=== PATIENT | male | born 1935 | race Caucasian/White ===

== ENCOUNTER 2017-04-01 06:53 | Emergency (ER) | payer MEDICARE ==
[2017-04-01] MEDS ORDERED: IPRATROPIUM/ALBUTEROL (0.5MG/3MG) NEB INH ONE ×2 (07:06→07:12)
[2017-04-01] MEDS ORDERED: ASPIRIN 81 MG CHEWABLE TABLET PO ONE (07:06)
--- NOTE | 2017-04-01 07:13 | Emergency Department Record ---
History of Present Illness - General Chief Complaint: Shortness of breath Stated Complaint: CATRACHO Time Seen by Provider: 04/01/17 07:05 Source: Patient, Family Mode of Arrival: Ambulatory Limitations: No limitations - History of Present Illness Initial Comments: 82 yo male presents with shortness of breath with chest pain that comes and goes. The symptoms have been intermittent over the last week and a half. He has a history of CAD and COPD. He reports he had a stent placed about three to four years ago. No fever. No significant cough and no fever. No new leg swelling. He is a former smoker that quit many years ago. His discomfort and shortness of breath are worsened by activity. His PCP is Dr Argueta. His last saw his obstetrics/gynecology nurse about one year ago. He is not on home oxygen. Initial oxygen saturations on presentation was 81% just after ambulation. He reports relief with the oxygen in the ED and has no pain at this time. DC Summary from 02/2014 Cardiac Cath with right coronary stent, CAP, Bullous Emphysema, CAD,Anemia, HTN, MAT No stress test since the stent placement. He saw Dr Krishna about one year ago. Complaint: Chest pain, Cough, Shortness of breath Onset/Timin -: Days(s) (7) Severity: Moderate Consistency: Constant, Getting worse Improves With: Nothing Worsens With: Nothing Known History Of: COPD, Other (CAD) Associated Symptoms: Chest pain Treatments Prior to Arrival: None - Related Data Home Medications Medication Instructions Recorded Confirmed Last Taken Albuterol Sulfate [Proair Hfa] 1 - 2 puff IH .EVERY 4-6 HOURS PRN 04/01/1704/01 Unknown Meloxicam [Mobic] 15 mg PO DAILY 04/01/17 04/01/17 Unknown Umeclidinium Brm/Vilanterol Tr 1 each IH DAILY 04/01/17 04/01/17 Unknown [Anoro Ellipta 62.5-25 Mcg INH] Allergies Allergy/AdvReac Type Severity Reaction Status Date / Time No Known Drug Allergies Allergy Verified 02/01/14 23:52 Travel Screening - Travel/Exposure Within Last 30 Days Have you traveled within the last 30 days?: No Review of Systems Constitutional: Denies: Chills, Fever, Malaise, Weakness Eyes: Denies: Eye discharge ENT: Denies: Congestion, Dental pain, Throat pain Respiratory: Reports: Cough, Dyspnea, Wheezes. Denies: Hemoptysis, Stridor Cardiovascular: Reports: Chest pain. Denies: Palpitations, Syncope Endocrine: Reports: Fatigue Gastrointestinal: Denies: Abdominal pain, Diarrhea, Nausea, Vomiting Genitourinary: Denies: Dysuria, Frequency, Hematuria Musculoskeletal: Denies: Arthralgia, Back pain, Joint swelling, Myalgia, Neck pain Skin: Denies: Bruising, Change in color Neurological: Denies: Confusion, Headache, Numbness, Weakness Psychiatric: Denies: Anxiety Hematological/Lymphatic: Denies: Blood Clots, Easy bleeding, Easy bruising, Swollen glands Past Medical History - SOCIAL HISTORY Smoking Status: Former smoker Alcohol Use: None Drug Use: None - RESPIRATORY Hx Respiratory Disorders: No Comment:: "early emphysema." - CARDIOVASCULAR Hx Cardio Disorders: Yes Hx Heart Attack: Yes (2013 stent) Hx Hypertension: Yes - NEURO Hx Neuro Disorders: No - GI Hx GI Disorders: Yes - Hx Genitourinary Disorders: No - ENDOCRINE Hx Endocrine Disorders: No - MUSCULOSKELETAL Hx Musculoskeletal Disorders: No - PSYCH Hx Psych Problems: No - HEMATOLOGY/ONCOLOGY Hx Hematology/Oncology Disorders: No Family Medical History Any Significant Family History?: No Physical Exam - General General Appearance: Alert, Oriented x3, Cooperative, No acute distress Limitations: No limitations - Head Head exam: Normal inspection - Eye Eye exam: Normal appearance, PERRL. negative: Conjunctival injection, Periorbital swelling - ENT ENT exam: Normal exam, Mucous membranes moist Ear exam: Normal external inspection Nasal Exam: Normal inspection Mouth exam: Normal external inspection Teeth exam: Normal inspection Throat exam: Normal inspection - Neck Neck exam: Normal inspection, Full ROM. negative: Tenderness - Respiratory Respiratory exam: Decreased breath sounds. negative: Accessory muscle use, Prolonged expiratory, Respiratory distress, Rhonchi, Stridor, Wheezes - Cardiovascular Cardiovascular Exam: Regular rate, Normal rhythm, Normal heart sounds, Other ( occasional extrasystole) Peripheral Pulses: 2+: Radial (R), Radial (L) - GI/Abdominal GI/Abdominal exam: Soft. negative: Tenderness - Rectal Rectal exam: Deferred - exam: Deferred - Extremities Extremities exam: Normal inspection, Full ROM, Normal capillary refill. negative: Pedal edema, Tenderness - Back Back exam: Reports: Normal inspection, Full ROM. Denies: Muscle spasm, Rash noted, Tenderness - Neurological Neurological exam: Alert, Normal gait, Oriented X3 - Psychiatric Psychiatric exam: Normal affect, Normal mood - Skin Skin exam: Dry, Intact, Normal color, Warm Course - Reevaluation(s) Reevaluation #1: EKG sinus rhythm with occasional extra beats, Qtc 473, axis normal, ST no acute changes. No significant changes 02/01/14 04/01/17 07:11 04/01/17 07:59 The patient states the discomfort in the lower chest is returning but very mild. He will be placed on oxygen and one nitro will be given. 04/01/17 08:01 BNP is 1171 The CXR was reviewed. Prlim MILD PVC 04/01/17 08:19 One nitro glycerin resolved pain completely 04/01/17 09:[address] due to scanner is off line. 04/01/17 09:14 I have explained the situation to the patient. I have recommended EMS transfer to [facility] ED given the time for the CT scanner repair is unknown and was recently down for 2.5 days. He agrees with transfer to [facility] but he will not go by ambulance. I had several very long discussions that [place] and other diagnoses such as PE are not ruled out. I explained he should be on a monitor and oxygen. I explained at length he is taking serious risk by going private car. He understands this and accepts this risk. I explained the AMA signout process and that he is accepting risks of self transport. He agrees and states there are no obvious circumstances that would alter his decision. He is of clear thought and decision making. His daughter is very reliable and will take him. I SW Dr Aysha Donohue of the [facility] ED and explained the AMA signed out and the transfer by car for further work up of his chest pain and shortness of breath. 04/01/17 09:23 04/01/17 09:34 At time of Dc he is pain free, no dyspnea, saturation 96% Medical Decision Making - Lab Data Result diagrams: 04/01/17 07:00 04/01/17 07:00 Disposition Disposition: Transfer Clinical Impression: Hypoxia Chest pain Qualifiers: Chest pain type: unspecified Qualified Code(s): R07.9 - Chest pain, unspecified Disposition: Against Medical Advice Transfer To: [facility] Reason For Transfer: Chest Pain, No Cardiology Accepting Physician: Charanjit Time Discussed w/Accepting Physician: 09: Condition: (3) Guarded Instructions: Against Medical Advice (ED) Additional Instructions: Go directly to the [facility] for work up and admission for chest pain and shortness of breath Forms: Patient Portal Access Time of Disposition: : Quality - Quality Measures Quality Measures: N/A - Blood Pressure Screening Does Patient Have Any of the Following: No Blood Pressure Classification: Pre-Hypertensive BP Reading Systolic Measurement: 136 Diastolic Measurement: 73 Screening for High Blood Pressure: < Pre-Hypertensive BP, F/U Documented > [ [id number]] Pre-Hypertensive Follow-up Interventions: Referral to alternative/primary care provider.
[2017-04-01 07:23] LABS: HEMATOCRIT 38.5 % (42.0-52.0); HEMOGLOBIN 13.3 gm/dl (14.0-18.0); MEAN CELL VOLUME 101.3 fl (81-97); MEAN CORPUSCULAR HGB CONC 34.5 g/dl (32-36); MEAN PLATELET VOLUME 10.1 fl (7.4-10.4); PLATELET COUNT 186 K/uL (130-400); RED CELL DISTRIBUTION WIDTH 12.8 % (11.5-14.5); WHITE BLOOD COUNT W/O DIFF 8.6 K/uL (4.2-12.2)
[2017-04-01 07:32] LABS: INR 1.1; PARTIAL THROMBOPLASTIN TIME 30.2 SECONDS (24.5-39.1); PROTHROMBIN TIME (PATIENT) 11.5 SECONDS (9.5-12.1)
[2017-04-01 07:33] LABS: BLOOD UREA NITROGEN 10 mg/dL (8-23); EST GLOMERULAR FILTRATION RATE > 60 mL/min
[2017-04-01 07:34] LABS: TOTAL PROTEIN 7.1 g/dL (6.6-8.7)
[2017-04-01 07:36] LABS: GLUCOSE,RANDOM 116 mg/dL (74-109)
[2017-04-01 07:39] LABS: ALBUMIN 4.7 g/dL (4.0-5.0); ALKALINE PHOSPHATASE 77 U/L (40-129); ALT/SGPT 18 U/L (<41); AST/SGOT 19 U/L (10.0-50.0)
[2017-04-01] MEDS ORDERED: NITROGLYCERIN 0.4MG SL TABLET #25 BTL SL ONE (07:59)
[2017-04-01] MEDS ORDERED: METHYLPREDNISOLONE PF 125MG/VIAL IVP ONE (08:56)
--- NOTE | 2017-04-02 04:10 | RADIOLOGY REPORT ---
DATE: 04/01/2017. EXAM: TWO VIEWS OF THE CHEST. HISTORY: The patient has chest pain. TECHNIQUE: Two views of the chest were provided along with a comparison study dated 02/20/2014. FINDINGS: The cardiomediastinal silhouette is within normal limits for size and contour. The ciera appear unremarkable. There is no radiographic evidence of a focal infiltrate or pleural effusion. Significant chronic obstructive pulmonary disease changes are identified bilaterally. Pulmonary fibrosis is suspected bilaterally. IMPRESSION: CHRONIC OBSTRUCTIVE PULMONARY DISEASE CHANGES ARE IDENTIFIED WITHOUT RADIOGRAPHIC EVIDENCE OF A NEW, ACUTE INTRATHORACIC PROCESS. JOB NUMBER: [id number] [facility]
== END 2017-04-01 09:32 | disposition left against medical advice (07) ==
LOC: ER 06:53
DX: R09.02 Hypoxemia (principal); I10 Essential (primary) hypertension; J44.9 Chronic obstructive pulmonary disease, unspecified; I50.9 Heart failure, unspecified; I25.2 Old myocardial infarction; Z87.891 Personal history of nicotine dependence
CPT/HCPCS: 71046; 80053; 83880; 84484; 85027; 85379; 85610; 85730; 93005; 93010; 94640; 96374; 99284; J2930

== ENCOUNTER 2019-02-11 21:14 | Inpatient (IN) | payer MEDICARE, MEDICAID ==
[2019-02-11] MEDS ORDERED: IPRATROPIUM/ALBUTEROL (0.5MG/3MG) NEB INH ONE (21:17)
--- NOTE | 2019-02-11 21:24 | Emergency Department Record ---
History of Present Illness - General Chief Complaint: Shortness of breath Stated Complaint: CATRACHO Time Seen by Provider: 02/11/19 21:16 Source: Patient, EMS Mode of Arrival: EMS Limitations: No limitations - History of Present Illness Initial Comments: 84 yo male presents to ED for evaluation of difficulty in breathing tonight while changing is ostomy, reports history of COPD and he became short of breath with minimal exertion this evening. Patient denies fevers, chills, productive cough symptoms. Patient does report mild bilateral lower extremity edema symptoms. Patient denies chest discomfort symptoms. MD Complaint: Shortness of breath Onset/Timin -: Minutes(s) Severity: Moderate Consistency: Constant Improves With: Oxygen Worsens With: Exertion Known History Of: COPD Associated Symptoms: Denies other symptoms Treatments Prior to Arrival: Bronchodilator, Oxygen - Related Data Home Oxygen Therapy: Yes Home Oxygen Amount: 2 Liters Allergies Allergy/AdvReac Type Severity Reaction Status Date / Time No Known Drug Allergies Allergy Unverified 02/16/18 19:34 Review of Systems Constitutional: Denies: Chills, Fever, Malaise, Night sweats Eyes: Denies: Eye discharge, Eye pain ENT: Denies: Congestion, Ear pain, Epistaxis Respiratory: Reports: Dyspnea, Wheezes. Denies: Cough Cardiovascular: Reports: Dyspnea on exertion. Denies: Chest pain, Edema Endocrine: Denies: Fatigue, Heat or cold intolerance Gastrointestinal: Denies: Abdominal pain, Nausea, Vomiting Genitourinary: Denies: Incontinence, Retention Musculoskeletal: Reports: Arthralgia. Denies: Back pain Skin: Denies: Bruising, Change in color Neurological: Denies: Confusion, Headache, Seizure Psychiatric: Denies: Anxiety Hematological/Lymphatic: Denies: Anemia, Blood Clots Past Medical History - SOCIAL HISTORY Smoking Status: Former smoker Drug Use: None - RESPIRATORY Hx Respiratory Disorders: No Comment:: "early emphysema." - CARDIOVASCULAR Hx Cardio Disorders: Yes Hx Heart Attack: Yes (2014 stent) Hx Hypertension: Yes - NEURO Hx Neuro Disorders: No - GI Hx GI Disorders: Yes - Hx Genitourinary Disorders: No - ENDOCRINE Hx Endocrine Disorders: No - MUSCULOSKELETAL Hx Musculoskeletal Disorders: No - PSYCH Hx Psych Problems: No - HEMATOLOGY/ONCOLOGY Hx Hematology/Oncology Disorders: No Physical Exam - General General Appearance: Alert, Oriented x3, Cooperative, Mild distress Limitations: No limitations - Head Head exam: Atraumatic, Normocephalic, Normal inspection Head exam detail: negative: Abrasion, Contusion, Lobato's sign, General tenderness, Hematoma, Laceration - Eye Eye exam: Normal appearance. negative: Conjunctival injection, Periorbital swe lling, Periorbital tenderness, Scleral icterus - ENT Ear exam: negative: Auricular hematoma, Auricular trauma Nasal Exam: negative: Active bleeding, Discharge, Dried blood, Foreign body Mouth exam: negative: Drooling, Laceration, Muffled voice, Tongue elevation - Neck Neck exam: Normal inspection. negative: Meningismus, Tenderness - Respiratory Respiratory exam: Decreased breath sounds, Respiratory distress. negative: Rales, Rhonchi, Stridor, Wheezes - Cardiovascular Cardiovascular Exam: Regular rate, Normal rhythm, Normal heart sounds - GI/Abdominal GI/Abdominal exam: Soft. negative: Rebound, Rigid, Tenderness - Rectal Rectal exam: Deferred - exam: Deferred - Extremities Extremities exam: Pedal edema (Trace). negative: Tenderness - Back Back exam: Denies: CVA tenderness (R), CVA tenderness (L) - Neurological Neurological exam: Alert, Normal gait, Oriented X3 - Psychiatric Psychiatric exam: Normal affect, Normal mood - Skin Skin exam: Normal color. negative: Abrasion Type of lesion: negative: abrasion Course - Reevaluation(s) Reevaluation #1: 02/11/19 21:38 EKG: Sinus tachycardia 107 with PVCs LAD, normal intervals No acute ST-T wave changes are present on examination. Reevaluation #2: 02/11/19 22:03 CXR: Emphysema Increased diffuse reticuloneodular process-pulmonary edema vs. ? atypical pneumonia Laboratory studies were reviewed and appear grossly unremarkable for an acute process except for the following: Troponin 0.021 BNP 2233 Patient and family were updated on all results, will admit for 2-D Echo and cardiology consultation. No clinical evidence for pneumonia upon review of the patient's history and examination. Patient is in agreement with the plan of care as discussed. Reevaluation #3: 02/12/19 06:50 Case was discussed with Jolynn Milian NP, will accept patient for admission. Medical Decision Making - Lab Data Result diagrams: 02/11/19 21:35 02/11/19 21:35 Disposition Disposition: Admit Clinical Impression: Hypoxia COPD (chronic obstructive pulmonary disease) Qualifiers: COPD type: unspecified COPD Qualified Code(s): J44.9 - Chronic obstructive pulmonary disease, unspecified Pulmonary edema Qualifiers: Chronicity: acute Qualified Code(s): J81.0 - Acute pulmonary edema Disposition: Still a Patient at [facility] Decision to Admit: Admit from ER Decision to Admit Date: 02/11/19 Decision to Admit Time: 22:11 Condition: (2) Stable Time of Disposition: 22:11 Quality - Quality Measures Quality Measures: N/A - Blood Pressure Screening Does Patient Have Any of the Following: Active Dx of HTN Blood Pressure Classification: Hypertensive Reading Systolic Measurement: 139 Diastolic Measurement: 117 Screening for High Blood Pressure: Patient Exclusion, Hx of HTN [G9744]
[2019-02-11 21:50] LABS: BASO % 0.3 % (0-6); EOS % 0.2 % (0-6); HEMATOCRIT 43.2 % (42.0-52.0); HEMOGLOBIN 14.4 gm/dl (14.0-18.0); LYMPH % 8.9 % (16-45); MEAN CELL VOLUME 99.5 fl (81-97); MEAN CORPUSCULAR HGB CONC 33.3 g/dl (32-36); MEAN PLATELET VOLUME 10.3 fl (7.4-10.4); MONO % 7.6 % (0-9); PLATELET COUNT 195 K/uL (130-400); RED BLOOD COUNT 4.34 M/uL (4.40-5.70); RED CELL DISTRIBUTION WIDTH 14.3 % (11.5-14.5)
[2019-02-11] MEDS ORDERED: METHYLPREDNISOLONE PF 125MG/VIAL IVP ONE (21:51)
[2019-02-11 21:52] LABS: MEAN CORPUSCULAR HEMOGLOBIN 33.1 pg (27-33)
--- NOTE | 2019-02-11 21:58 | RADIOLOGY REPORT ---
EXAMINATION: Two View Chest Radiographs EXAM DATE: 02/11/2019 9:54 PM TECHNIQUE: Frontal and lateral views INDICATION: CATRACHO COMPARISON: None ENCOUNTER: Not applicable FINDINGS: Lungs are hyperinflated. Upper lung lucency as well as left basilar lucency consistent with emphysema . There is diffuse reticulonodular pattern more evident than the prior studies. Cardiac silhouette is not enlarged. Diaphragm is flattened. Osteopenia. IMPRESSION: Emphysema. There is diffuse reticulonodular opacity more prominent than prior studies which may refle ct mild interstitial pulmonary edema or atypical pneumonia. Dictated by: Davey Estrada MD on 02/11/2019 9:54 PM. .
[2019-02-11 22:02] LABS: BLOOD UREA NITROGEN 24 mg/dL (8-23)
[2019-02-11 22:03] LABS: CREATININE 1.2 mg/dL (0.7-1.2); EST GLOMERULAR FILTRATION RATE > 60 mL/min; TOTAL PROTEIN 7.1 g/dL (6.6-8.7)
[2019-02-11 22:05] LABS: GLUCOSE,RANDOM 125 mg/dL (74-109)
[2019-02-11 22:08] LABS: ALB/GLOB RATIO 1.4 (1.1-1.8); ALBUMIN 4.1 g/dL (4.0-5.0); ALKALINE PHOSPHATASE 131 U/L (40-129); ALT/SGPT 34 U/L (<41); AST/SGOT 20 U/L (10.0-50.0)
[2019-02-11] MEDS ORDERED: FAMOTIDINE 20MG TABLET PO PRN (23:13)
[2019-02-12] MEDS: SODIUM CHLORIDE NASAL SPRAY PRN (00:08)
[2019-02-12] MEDS ORDERED: MECLIZINE 25 MG TABLET PO PRN (00:15)
[2019-02-12] MEDS: ALBUTEROL HFA 8 GM INHALER INH SCH ×3 (02:14→10:13)
[2019-02-12] MEDS: METHYLPREDNISOLONE PF 125MG/VIAL IVP SCH ×3 (08:35→21:25)
[2019-02-12] MEDS: HYDROCHLOROTHIAZIDE 12.5 MG CAPSULE PO SCH (09:38)
[2019-02-12] MEDS: LISINOPRIL 20 MG TABLET PO SCH (09:38)
[2019-02-12] MEDS: PRAVASTATIN 40MG PO SCH (09:39)
[2019-02-12] MEDS: ROFLUMILAST 500 MCG PO SCH (09:40)
[2019-02-12] MEDS: MELOXICAM 7.5 MG TABLET PO SCH (09:40)
[2019-02-12] MEDS ORDERED: FUROSEMIDE IV 20MG/2ML VIAL IVP SCH (10:00)
[2019-02-12] MEDS ORDERED: POTASSIUM CHLORIDE 20 MEQ TABLET PO ONE (10:00)
[2019-02-12] MEDS ORDERED: METOPROLOL TART 25 MG TABLET PO SCH (10:00)
[2019-02-12] MEDS: TRELEGY INH SCH (10:27)
--- NOTE | 2019-02-12 10:53 | History & Physical ---
History of Present Illness - Date of Service Date of Service for History & Physical: 02/12/19 - History of Present Illness Admitting Diagnosis: Hypoxia. Probable CHF exacerbation vs. COPD exacerbation History of Present Illness: 84 year old male patient presented to ED for evaluation of SOB. Patient reported getting up to change his ostomy bag during the night and reports being unable to catch his breath after getting up. States he has to increase his oxygen to 4L at that time, up from his baseline 2L oxygen. 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 Denied fever, chills, cough, nausea, vomiting, or diarrhea. Patient has noted bilateral leg swelling for 3 weeks as well. Reports a cardiac history significant for a cardiac stent 4-5 years ago, but has not been following with any clinical provider trainer since then. Patient also has a PMH of COPD with home oxygen use, HTN, and an ostomy due to rectal cancer 13 years ago. PCP: Dr. Argueta ED Course: EKG: sinus tachycardia rate 107 with PVCx CXR: emphysema; reticulonodular opacity which may be interstitial pulmonary edema vs atypical pneumonia Trop 0.021 BNP 2233 CBC unremarkable, K 3.2, Cr 1.2, GFR 60 Solumedrol 125mg IVP 02/12/19: Patient A&O x 4, resting comfortably in bed. Notes some improvement in SOB since admission. Reports intermittent SOB x 3-4 days with bilateral leg swelling x 3 weeks. Also notes increasing weakness and difficulty at home, as he lives alone. Reports using a wheeled walker within the home. Has also noted weight loss due to inability to make meals for himself. 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 Travel Screening - Travel/Exposure Within Last 30 Days Have you traveled within the last 30 days?: No - Travel/Exposure Within Last Year Have you traveled outside the [place] 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 Denies: Cough Cardiovascular: Reports: Dyspnea on exertion. Denies: Chest pain, Edema Endocrine: Denies: Fatigue, Heat or cold intolerance Gastrointestinal: Denies: Abdominal pain, Nausea, Vomiting Genitourinary: Denies: Incontinence, Retention Musculoskeletal: Reports: Arthralgia. Denies: Back pain Skin: Denies: Bruising, Change in color Neurological: Denies: Confusion, Headache, Seizure Psychiatric: Denies: Anxiety Hematological/Lymphatic: Denies: Anemia, Blood Clots Past Medical History - SOCIAL HISTORY Smoking Status: Former smoker Drug Use: None - RESPIRATORY Hx Respiratory Disorders: No Comment:: "early emphysema." - CARDIOVASCULAR Hx Cardio Disorders: Yes Hx Heart Attack: Yes (2013 stent) Hx Hypertension: Yes - NEURO Hx Neuro Disorders: No - GI Hx GI Disorders: Yes - Hx Genitourinary Disorders: No - ENDOCRINE Hx Endocrine Disorders: No - MUSCULOSKELETAL Hx Musculoskeletal Disorders: No - PSYCH Hx Psych Problems: No - HEMATOLOGY/ONCOLOGY Hx Hematology/Oncology Disorders: No Family Medical History Any Significant Family History?: No H&P Meds/Allergies - Allergies Allergies: Allergies Allergy/AdvReac Type Severity Reaction Status Date / Time No Known Drug Allergies Allergy Unverified 02/16/18 19:34 - Home Medications Home Medications Medication Instructions Recorded Confirmed Last Taken Aspirin [Aspirin EC] 81 mg PO DAILY 02/12/19 02/12/19 Unknown Fluticasone/Umeclidin/Vilanter 1 puff INH DAILY 02/12/19 02/12/19 Unknown [Trelegy Ellipta 100-62.5-25] Lisinopril/Hydrochlorothiazide 1 each PO DAILY 02/12/19 02/12/19 Unknown [Lisinopril-Hctz 20-12.5 mg Tab] - Active Medications Active Medications: Current Medications Albuterol Sulfate (Ventolin Hfa) 1 - 2 puff INH RESP.Q4H [facility] Last Admin: 02/12/19 10:13 Dose: 2 puff Documented by: Aspirin (Ecotrin (Ec)) 81 mg PO DAILY [place] Famotidine (Pepcid) 20 mg PO DAILY PRN PRN Reason: INDIGESTION Fluticasone Propionate (Flonase) 1 spray NA BID [facility] Furosemide (Lasix Iv) 20 mg IVP DAILY [facility] Last Admin: 02/12/19 09:38 Dose: 20 mg Documented by: Hydrochlorothiazide (Hctz 12.5mg) 12.5 mg PO DAILY [facility] Last Admin: 02/12/19 09:38 Dose: 12.5 mg Documented by: Lisinopril (Zestril) 20 mg PO DAILY [facility] Last Admin: 02/12/19 09:38 Dose: 20 mg Documented by: Meclizine HCl (Antivert) 12.5 mg PO Q8H PRN PRN Reason: DIZZINESS Meloxicam (Mobic) 15 mg PO DAILY [facility] Last Admin: 02/12/19 09:40 Dose: 15 mg Documented by: Methylprednisolone Sodium Succinate (Solu-Medrol) 60 mg IVP Q8HR [facility] Last Admin: 02/12/19 08:35 Dose: 60 mg Documented by: Metoprolol Tartrate (Lopressor) 25 mg PO DAILY [facility] Last Admin: 02/12/19 09:39 Dose: 25 mg Documented by: Non-Formulary Medication (Roflumilast [Daliresp]) 500 mcg PO DAILY [facility] Last Admin: 02/12/19 09:40 Dose: 500 mcg Documented by: Pravastatin 40mg 1 each PO DAILY [facility] Last Admin: 02/12/19 09:39 Dose: 1 each Documented by: Bridget 1 each INH DAILY [facility] Last Admin: 02/12/19 10:27 Dose: 1 each Documented by: Sodium Chloride ([place] Nasal) 0.5 ml NA Q2H PRN PRN Reason: DRY NASAL PASSAGE Last Admin: 02/12/19 00:08 Dose: 0.5 ml Documented by: Physical Exam - Vital Signs Vital Signs: Vital Signs - Last 24 Hrs Temp Pulse Pulse Pulse Resp BP BP 02/12/19 10:14 72 18 02/12/19 09:00 97.7 F 109 H 89 22 117/60 02/12/19 06:10 90 20 02/12/19 05:16 109 H 22 02/12/19 05:13 97.6 F 82 20 104/65 02/12/19 02:14 124 H 22 02/12/19 01:13 97.6 F 96 H 22 96/69 02/11/19 23:31 02/11/19 23:13 97.6 F 112 H 30 H 165/98 02/11/19 22:27 96 H 30 H 139/97 02/11/19 21:18 123 H 24 01/05/20 21:17 99.1 F 100 H 28 H 139/117 Pulse Ox 02/12/19 10:14 91 L 02/12/19 09:00 91 L 02/12/19 06:10 93 L 02/12/19 05:16 02/12/19 05:13 93 L 02/12/19 02:14 93 L 02/12/19 01:13 94 L 02/11/19 23:31 88 L 02/11/19 23:13 91 L 02/11/19 22:27 90 L 02/11/19 21:18 02/11/19 21:17 100 - General General Appearance: Alert, Oriented x3, Cooperative, No acute distress Limitations: No limitations - Head Head exam: Atraumatic, Normocephalic, Normal inspection Head exam detail: negative: Abrasion, Contusion, Lobato's sign, General tenderness, Hematoma, Laceration - Eye Eye exam: Normal appearance. negative: Conjunctival injection, Periorbital swelling, Periorbital tenderness, Scleral icterus - ENT ENT exam: Mucous membranes moist Ear exam: negative: Auricular hematoma, Auricular trauma Nasal Exam: negative: Active bleeding, Discharge, Dried blood, Foreign body Mouth exam: negative: Drooling, Laceration, Muffled voice, Tongue elevation - Neck Neck exam: Normal inspection. negative: Meningismus, Tenderness - Respiratory Respiratory exam: Decreased breath sounds, Rhonchi. negative: Rales, Stridor, Wheezes - Cardiovascular Cardiovascular Exam: Regular rate, Normal rhythm, Normal heart sounds Peripheral Pulses: 2+: Radial (R), Radial (L), Dorsalis Pedis (R), Dorsalis Pedis (L) - GI/Abdominal GI/Abdominal exam: Soft, Other (LLQ ostomy). negative: Rebound, Rigid, Ten derness - Rectal Rectal exam: Deferred - exam: Deferred - Extremities Extremities exam: Pedal edema (2+ bilaterally). negative: Tenderness - Back Back exam: Denies: CVA tenderness (R), CVA tenderness (L) - Neurological Neurological exam: Alert, Oriented X3 - Psychiatric Psychiatric exam: Normal affect, Normal mood - Skin Skin exam: Normal color. negative: Abrasion Type of lesion: negative: abrasion Results - Labs Result Diagrams: 02/11/19 21:35 02/11/19 21:35 Labs Last 24 Hours: Laboratory Results - last 24 hr 02/11/19 02/11/19 02/12/19 21:35 21:35 06:20 WBC 10.0 RBC 4.34 L Hgb 14.4 Hct 43.2 MCV 99.5 H MCH 33.1 H MCHC 33.3 RDW 14.3 Plt Count 195 MPV 10.3 Gran % 83.0 H Lymphocytes % 8.9 L Monocytes % 7.6 Eosinophils % 0.2 Basophils % 0.3 Absolute Neutrophils 8.30 Sodium 144 Potassium 3.2 L Chloride 103 Carbon Dioxide 24.0 Anion Gap 17.0 H BUN 24 H Creatinine 1.2 Estimated GFR > 60 Random Glucose 125 H Calcium 9.2 Total Bilirubin 1.50 H AST 20 ALT 34 Alkaline Phosphatase 131 H Troponin T 0.021 H < 0.010 NT-Pro-B Natriuret Pep 2233.00 H Total Protein 7.1 Albumin 4.1 Globulin 3.0 Albumin/Globulin Ratio 1.4 - Imaging and Cardiology Chest x-ray Status: Report reviewed VTE H&P Assessment - Risk for VTE Risk for VTE: Yes Risk Level: Moderate Risk Assessment Date: 02/12/19 Risk Assessment Time: 11:01 VTE Orders Placed or Will Be Placed: Yes Plan - Detailed Diagnosis and Plan (1) CHF (congestive heart failure) Current Visit: Yes Status: Acute Base Code: I50.9 - HEART FAILURE, UNSPECIFIED Comment: 02/12/19 - Increased SOB x 3 days with bilateral leg swelling x 3 weeks - No history of CHF, no current clinical provider trainer - BNP 2233 - CXR: reticulonodular opacity indicative of possible pulmonary edema - Bilateral lower extremity edema 2+ - Starting gentle diuresis with lasix 20mg daily - Strict I&O, daily weight, fluid restriction - ECHO ordered - 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 - 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 (2) COPD (chronic obstructive pulmonary disease) Current Visit: Yes Status: Acute Qualifiers: COPD type: unspecified COPD Qualified Code(s): J44.9 - Chronic obstructive pulmonary disease, unspecified Base Code: J44.9 - CHRONIC OBSTRUCTIVE PULMONARY DISEASE, UNSPECIFIED Comment: 02/12/19 - Increased SOB, COPD at baseline with home Oxygen use at 2L - CXR: emphysema - Afebrile, no elevation in WBC indicating infectious cause - Continue Daliresp and Trelegy - Solumedrol 60mg IVP q8h - Duoneb q4h prn SOB (3) Weakness Current Visit: Yes Status: Acute Base Code: R53.1 - WEAKNESS Comment: 02/12/19 - Patient reports increased weakness at home with difficulty performing ADLs as a result - Noting home weight loss - PT/OT to evaluation - Case management to work with patient and family on intermediate accountant plan (4) Hypoxia Current Visit: Yes Status: Acute Base Code: R09.02 - HYPOXEMIA Comment: 02/12/19 - Hypoxic on admission, requiring oxygen to increase to 12L - Improvement since admission, titrating oxygen needs down to keep pulse ox >90% - Continue to monitor (5) DVT prophylaxis Current Visit: Yes Status: Acute Base Code: Z29.9 - ENCOUNTER FOR PROPHYLACTIC MEASURES, UNSPECIFIED Comment: 02/12/19 - Moderate risk due to age, hospitalization, and increased weakness - Lovenox 40mg SQ (6) DNR (do not resuscitate) Current Visit: Yes Status: Acute Base Code: Z66 - DO NOT RESUSCITATE Comment: 02/12/19 - DNR this admission
--- NOTE | 2019-02-12 11:46 | Rehab Evaluation ---
Patient Information - Patient Information Diagnosis: Hypoxia Ordered Treatment: PT Evaluate and Treat Status: Initial Evaluation History: Detail (The patient presented in ED on 02/11 with complaints of difficulty breathing when changing his ostomy.) Past Medical/Surgical Hx: PAST MEDICAL/SURGICAL HISTORY Past Surgical History colostomy cardiac stent PMH - Respiratory Hx Respiratory Disorders No Comment: "early emphysema." PMH - Cardiovascular Hx Cardiovascular Disorders Yes Hx Heart Attack Yes: 2014 stent Hx Hypertension Yes PMH - Neuro Hx Neurological Disorders No PMH - GI Hx Gastrointestinal Disorders Yes PMH - Hx Genitourinary Disorders No PMH - Endocrine Hx Endocrine Disorders No PMH - Musculoskeletal Hx Musculoskeletal Disorders No PMH - Psych Hx Psychiatric Problems No PMH - Hematology/Oncology Hx Hematology/Oncology No Disorders Premorbid Status: Detail (The patient was ambulatory with 4 wheeled walker and O2 short distances. The patient had assistance with housework (3 times a week) and with bathing and dressing. Patient's family brought patient meals and also assisted with cleaning and laundry.) Social History: Detail (The patient lives alone in an apartment on the main floor. The patient's bathroom is equipped with : a walk in shower with a seat which patient does not use and a regular height toilet. The patient has a 4 wheeled walker and home O2.) Precautions: [place], Fall - Time With Patient Total Time Spent With Patient (Min): 30 Treatment Procedures: Detail (Initial Evaluation, low complexity.) Subjective Information - Subjective Information Per Patient (The patient has complaints of bilateral knee pain R knee with movement. The patient did not rate his pain using 0-10 pain scale.) Objective Data - Mental Status Patient Orientation: Oriented x3 - Visual Perception Appears within normal limits for therapeutic activities - ROM Not within normal limits (The patient's knee AROM was WNL except for R knee ext ension -10 degrees..) - Strength/Tone Not within normal limits (The patient's LE strength was bilaterally hip flexors 4-/5, hip abductors and adductors 4+/5, knee flexors and extensors 4/5. Ankle musculature testing was deferred secondary to shortness of breath with LE strength testing and decreased SPO2 82%.) - Bed Mobility Independent (The patient was independent with supine to sit transfer. The patient sat on the edge of the bed x 10 minutes.Patient's SPO2 remained in the 80's on 3L of O2. Increased to 4 L. The patient was able to with proper pursed lip breathing techniques increase SPO2 to 88.) - Transfers Independent (The patient was independent with sit to and from stand transfer. The patient declined to ambulate due to fear he wouldn't be able to breath. The patient did take 2 steps to chair with use of front wheeled walker and transferred to chair with supervision for safety only. After transferring and resting in chair x 1 minute SPO2 level increased to 91 (on 4 L of O2).) - Balance Balance Sitting: Good Balance Standing: Fair (The patient required support of walker to stand.) - Gait Detail (The patient declined to ambulate but did take two steps to the chair with supervision for safety and use of front wheeled walker.) Therapy Assessment - Therapy Assessment Detail (The patient exhibits shortness of breath with all physical activity including bed mobility, transfers and manual muscle testing. The patient's SPO2 level dropped to the 80 at the lowest with activity. The patient would benefit from PT to increase ability to complete functional activities including ambulation with minimal shortness breath.The patient would also benefit from short term subacute Rehab once medically stable.) Problem List - Problem List Physical Therapy Problem List: Detail (1) Impaired ambulation due to increased shortness of breath with activity 2) Decreased ability to complete prolonged physical activity 3) Decreased LE strength) Goals - Goals Physical Therapy Goals: 1) The patient will ambulate 20 feet with 4 L of O2 with supervision for safety only. 2) Assess the patient's balance using objective balance test. 3) The patient will tolerate 20 minutes of physical activity with one to two rest periods, maintaining SPO2 at 88 or above using pursed lip breathing techniques. Plan - Plan Physical Therapy Plan: PT daily M- F for gait training, LE strengthening and muscular endurance exercises and balance exercises.
--- NOTE | 2019-02-12 13:36 | Inpatient Certification ---
Inpatient Certification Admit to inpatient care: Based on my medical assessment, after consideration of patient's risk factors (age, co-morbidities and patient presenting symptoms and acuity), I expect that this patient will remain in the hospital greater than or equal to two midnights and that the services needed warrant inpatient care because: Patient Risk Factors: [age, hospitalization, comorbidities, CHF, COPD, supplemental oxygen] Estimated length of stay: The patient may reasonably be expected to be discharged or transferred to a hospital within 36-96 hours after admission to [facility]. Services needed: [diuresis, PT/OT, supplemental oxygen, respiratory therapy, monitoring tech] Post hospital care (if known): [] I certify that my determination is in accordance with my understanding of Medicare requirements for reasonable and necessary inpatient services. 02/12/19 13:35
--- NOTE | 2019-02-12 14:05 | Rehab Evaluation ---
Patient Information - Patient Information Diagnosis: Hypoxia Ordered Treatment: OT Evaluate and Treat Status: Initial Evaluation Surgery: No History: Detail (The patient presented in ED on 02/11/19 with complaints of diffic ulty breathing when caring for his ostomy.) Past Medical/Surgical Hx: PAST MEDICAL/SURGICAL HISTORY Past Surgical History colostomy cardiac stent PMH - Respiratory Hx Respiratory Disorders No Comment: "early emphysema." PMH - Cardiovascular Hx Cardiovascular Disorders Yes Hx Heart Attack Yes: 2014 stent Hx Hypertension Yes PMH - Neuro Hx Neurological Disorders No PMH - GI Hx Gastrointestinal Disorders Yes PMH - Hx Genitourinary Disorders No PMH - Endocrine Hx Endocrine Disorders No PMH - Musculoskeletal Hx Musculoskeletal Disorders No PMH - Psych Hx Psychiatric Problems No PMH - Hematology/Oncology Hx Hematology/Oncology No Disorders Premorbid Status: Detail (The patient was ambulatory with 4 wheeled walker and O2 short distances. The patient had assistance with housework (3 times a week) and with bathing and dressing. Patient's family brought patient meals and also assisted with cleaning and laundry and he received meals on wheels. He reports he was Ind with all ADLs/IADLs prior to 3 months ago but due to [place] he has been requiring assistance.) Social History: Detail (The patient lives alone in an apartment on the main floor. The patient's bathroom is equipped with : a walk in shower with a seat which patient does not use and a regular height toilet. The patient has a 4 wheeled walker and home O2.) Precautions: [place], Fall - Time With Patient Total Time Spent With Patient (Min): 35 Treatment Procedures: Detail (OT eval low complexity) Subjective Information - Subjective Information Per Patient Objective Data - Pain Pain Present: No - Mental Status Patient Orientation: Oriented x3 - Visual Perception Appears within normal limits for therapeutic activities - ROM Within normal limits (Darryl UE AROM WNL) - Strength/Tone Within normal limits (Darryl UE strength 4+/5) - Coordination Appears within normal limits for therapeutic activities - Bed Mobility Independent (Ind with supine to sit) - Transfers Independent (Ind with sit to stand from EOB.) - Balance Balance Sitting: Good Balance Standing: Fair - Sensation Intact - Gait Detail (Pt able to take several small steps from EOB to chair although he became very short of breath. He was initially using 2 liters of oxygen which was increased to 4 liters during eval. He was able to utilize pursed lip breathing after verbal cues and his sats ranged from 80 to 91 during evaluation.) - ADL's/IADL's Detail (Pt requiring assist with ostomy care and he is using urinal. Remaining ADLs not formally assessed due to patient fatigue.) Therapy Assessment - Therapy Assessment Detail (Pt presents with significantly impaired endurance needed for safe and Ind ADLs and functional mobility. He would benefit from continued therapy to maximize his activity tolerance.) Problem List - Problem List Occupational Therapy Problem List: Detail (1. Decreased Ind with self care tasks due to poor endurance. 2. Decreased Ind with functional mobility needed for safe and Ind ADLs/IADLs. 3. Poor overall activity tolerance needed for ADLs.) Goals - Goals Occupational Therapy Goals: 1. Pt will be safe and Ind with grooming/hygiene tasks while correctly utilizing modified breathing techniques. 2. Pt will be Ind with ambulating household distances to allow Ind self cares. 3. Pt will demonstrate improved tolerance to light ADL activity and correct utilization of modified breathing techniques. Prognosis - Prognosis Good Plan - Plan Occupational Therapy Plan: OT 2-4 times per week to address goals and problem list above.
[2019-02-12] MEDS: IPRATROPIUM/ALBUTEROL (0.5MG/3MG) NEB INH PRN (14:16)
[2019-02-12] MEDS: ASPIRIN 81 MG TABEC PO SCH (14:28)
[2019-02-12] MEDS: FLUTICASONE PROPIONATE 50MCG NASAL 16 GM BTL SCH ×2 (14:28→21:23)
--- NOTE | 2019-02-12 14:32 | Consult ---
Consult Order Detail - Reason for Consult Consult Date: 02/12/18 Consult Order Detail: Cardiology Consultation - Chief Complaint Chief Complaint: COPD,PULMONARY EDEMA,HYPOXIA HPI Consult - History of Present Illness Admitting Diagnosis: Hypoxia. Probable CHF exacerbation vs. COPD exacerbation History of Present Illness: Mr. Leroy is an 84 yo male with past medical history of coronary artery disease s/p PCI of the RCA in 2013, COPD on home oxygen, hypertension, and rectal cancer s/p resection with a colostomy. He presented to [facility] with complaint of shortness of breath. He reports worsening shortness of breath since [place]. He is normally on 2 L of oxygen but had increased himself to 4 L. He states for the last three to four days he has been especially short of breath. Also reports peripheral edema for the last 3 weeks. He was hypoxic upon arrival and was started on high flow oxygen. EKG demonstrated sinus rhythm with frequent PVCs and PACs. proBNP was elevated at 2,200. Troponin initially slightly elevated at 0.02 and has trended down to 0.01 and a third troponin is pending. Blood pressure is stable with the most recent being 104/65 mmhg. He is being treated for a COPD exacerbation as well as for CHF with IV lasix. His shortness of breath today has improved but continues to have significant dyspnea on exertion. Denies chest pains. Reports some shortness of breath at night. Echocardiogram is pending. Echo in 2018 demonstrated preserved LV EF of 60-65%. Lexiscan Cardiolite in 2018 did not demonstrate any stress induced ischemia. ROS Constitutional: Denies: Chills, Fever, Malaise, Night sweats Eyes: Denies: Eye discharge, Eye pain - ENT ENT: Denies: Congestion, Ear pain, Epistaxis - Respiratory Respiratory: Reports: Dyspnea, Wheezes. Denies: Cough - Cardiovascular Cardiovascular: Reports: Dyspnea on exertion. Denies: Chest pain, Edema - Endocrine Endocrine: Denies: Fatigue, Heat or cold intolerance - Gastrointestinal Gastrointestinal: Denies: Abdominal pain, Nausea, Vomiting - Genitourinary Genitourinary: Denies: Incontinence, Retention - Musculoskeletal Musculoskeletal: Reports: Arthralgia. Denies: Back pain - Skin Skin: Denies: Bruising, Change in color - Neurological Neurological: Denies: Confusion, Headache, Seizure - Psychiatric Psychiatric: Denies: Anxiety - Hematological/Lymphatic Hematological/Lymphatic: Denies: Anemia, Blood Clots Past Medical History - SOCIAL HISTORY Smoking Status: Former smoker Drug Use: None - RESPIRATORY Hx Respiratory Disorders: No Comment:: "early emphysema." - CARDIOVASCULAR Hx Cardio Disorders: Yes Hx Heart Attack: Yes (2014 stent) Hx Hypertension: Yes - NEURO Hx Neuro Disorders: No - GI Hx GI Disorders: Yes - Hx Genitourinary Disorders: No - ENDOCRINE Hx Endocrine Disorders: No - MUSCULOSKELETAL Hx Musculoskeletal Disorders: No - PSYCH Hx Psych Problems: No - HEMATOLOGY/ONCOLOGY Hx Hematology/Oncology Disorders: No Family Medical History Any Significant Family History?: No H&P Meds - Home Medications and Allergies Home Medications Medication Instructions Recorded Confirmed Last Taken Aspirin [Aspirin EC] 81 mg PO DAILY 02/12/19 02/12/19 Unknown Fluticasone/Umeclidin/Vilanter 1 puff INH DAILY 02/12/19 02/12/19 Unknown [Trelegy Ellipta 100-62.5-25] Lisinopril/Hydrochlorothiazide 1 each PO DAILY 02/12/19 02/12/19 Unknown [Lisinopril-Hctz 20-12.5 mg Tab] Allergies Allergy/AdvReac Type Severity Reaction Status Date / Time No Known Drug Allergies Allergy Unverified 02/16/18 19:34 Physical Exam - Vital Signs Vital Signs: Vital Signs - Last 24 Hrs Temp Pulse Pulse Pulse Resp BP BP 02/12/19 10:51 97.7 F 117/60 02/12/19 10:14 72 18 02/12/19 09:00 97.7 F 109 H 89 22 117/60 02/12/19 06:10 90 20 02/12/19 05:16 109 H 22 02/12/19 05:13 97.6 F 82 20 104/65 02/12/19 02:14 124 H 22 02/12/19 01:13 97.6 F 96 H 22 96/69 02/11/19 23:31 02/11/19 23:13 97.6 F 112 H 30 H 165/98 02/11/19 22:27 96 H 30 H 139/97 02/11/19 21:18 123 H 24 02/11/19 21:17 99.1 F 100 H 28 H 139/117 Pulse Ox 02/12/19 10:51 02/12/19 10:14 91 L 02/12/19 09:00 91 L 02/12/19 06:10 93 L 02/12/19 05:16 02/12/19 05:13 93 L 02/12/19 02:14 93 L 02/12/19 01:13 94 L 02/11/19 23:31 88 L 02/11/19 23:13 91 L 02/11/19 22:27 90 L 02/11/19 21:18 02/11/19 21:17 100 - General General Appearance: Alert, Oriented x3, Cooperative, No acute distress Limitations: No limitations - Head Head exam: Atraumatic, Normocephalic, Normal inspection Head exam detail: negative: Abrasion, Contusion, Lobato's sign, General tenderness, Hematoma, Laceration - Eye Eye exam: Normal appearance. negative: Conjunctival injection, Periorbital swelling, Periorbital tenderness, Scleral icterus - ENT ENT exam: Mucous membranes moist Ear exam: negative: Auricular hematoma, Auricular trauma Nasal Exam: negative: Active bleeding, Discharge, Dried blood, Foreign body Mouth exam: negative: Drooling, Laceration, Muffled voice, Tongue elevation - Neck Neck exam: Normal inspection. negative: Meningismus, Tenderness - Respiratory Respiratory exam: Decreased breath sounds, Rhonchi. negative: Rales, Stridor, Wheezes - Cardiovascular Cardiovascular Exam: Regular rate, Normal rhythm, Normal heart sounds Peripheral Pulses: 2+: Radial (R), Radial (L), Dorsalis Pedis (R), Dorsalis Pedis (L) - GI/Abdominal GI/Abdominal exam: Soft, Other (LLQ ostomy). negative: Rebound, Rigid, Tenderness - Rectal Rectal exam: Deferred - exam: Deferred - Extremities Extremities exam: Pedal edema (2+ bilaterally). negative: Tenderness - Back Back exam: Denies: CVA tenderness (R), CVA tenderness (L) - Neurological Neurological exam: Alert, Oriented X3 - Psychiatric Psychiatric exam: Normal affect, Normal mood - Skin Skin exam: Normal color. negative: Abrasion Type of lesion: negative: abrasion Results - Labs Result Diagrams: 02/11/19 21:35 02/11/19 21:35 Labs Last 24 Hours: Laboratory Results - last 24 hr 02/11/19 02/11/19 02/12/19 21:35 21:35 06:20 WBC 10.0 RBC 4.34 L Hgb 14.4 Hct 43.2 MCV 99.5 H MCH 33.1 H MCHC 33.3 RDW 14.3 Plt Count 195 MPV 10.3 Gran % 83.0 H Lymphocytes % 8.9 L Monocytes % 7.6 Eosinophils % 0.2 Basophils % 0.3 Absolute Neutrophils 8.30 Sodium 144 Potassium 3.2 L Chloride 103 Carbon Dioxide 24.0 Anion Gap 17.0 H BUN 24 H Creatinine 1.2 Estimated GFR > 60 Random Glucose 125 H Calcium 9.2 Total Bilirubin 1.50 H AST 20 ALT 34 Alkaline Phosphatase 131 H Troponin T 0.021 H < 0.010 NT-Pro-B Natriuret Pep 2233.00 H Total Protein 7.1 Albumin 4.1 Globulin 3.0 Albumin/Globulin Ratio 1.4 - Imaging and Cardiology CXR Status: Report reviewed EKG Status: Image reviewed Assessment and Plan - Disposition Disposition: 1. Acute Exacerbation of COPD 2. Volume Overload 3. CAD s/p PCI RCA 2013 4. Indeterminate Troponin Elevation 0.02, 0.01 5. COPD with Chronic Hypoxic Respiratory Failure 6. Hypertension Mr. Leroy is an 84 yo male with past medical history of coronary artery disease s/p PCI of the RCA in 2013, COPD on home oxygen, hypertension, and rec ivelisse cancer s/p resection with a colostomy. He presented to [facility] with complaint of shortness of breath. He reports worsening shortness of breath since [place]. He is normally on 2 L of oxygen but had increased himself to 4 L. He states for the last three to four days he has been especially short of breath. Also reports peripheral edema for the last 3 weeks. He was hypoxic upon arrival and was started on high flow oxygen. EKG demonstrated sinus rhythm with frequent PVCs and PACs. proBNP was elevated at 2,200. Troponin initially slightly elevated at 0.02 and has trended down to 0.01 and a third troponin is pending. Blood pressure is stable with the most recent being 104/65 mmhg. He is being treated for a COPD exacerbation as well as for CHF with IV lasix. His shortness of breath today has improved but continues to have significant dyspnea on exertion. Denies chest pains. Reports some shortness of breath at night. Echocardiogram is pending. Echo in 2018 demonstrated preserved LV EF of 60-65%. Lexiscan Cardiolite in 2018 did not demonstrate any stress induced ischemia. At this time I agree with gentle diuresis with IV lasix. Troponin is likely elevated secondary to demand ischemia from hypoxia. Recommend increased metoprolol tartrate to 25 mg bid for frequent PVCs and PACs. Echocardiogram is pending. Continue aspirin, statin, and beta meghana for history of CAD. Can decreased lisinopril if needed for hypotension. Recommend follow up with cardiology after discharge.
[2019-02-12] MEDS: METOPROLOL TART 25 MG TABLET PO SCH (21:34)
[2019-02-13 07:20] LABS: BLOOD UREA NITROGEN 38 mg/dL (8-23); CREATININE 1.1 mg/dL (0.7-1.2); EST GLOMERULAR FILTRATION RATE > 60 mL/min; GLUCOSE,RANDOM 172 mg/dL (74-109)
[2019-02-13] MEDS: TRELEGY INH SCH (09:51)
[2019-02-13] MEDS: FLUTICASONE PROPIONATE 50MCG NASAL 16 GM BTL SCH ×2 (09:52→21:27)
[2019-02-13] MEDS: ASPIRIN 81 MG TABEC PO SCH (09:52)
[2019-02-13] MEDS: FUROSEMIDE 20 MG TABLET PO SCH ×2 (09:53→17:06)
[2019-02-13] MEDS: HYDROCHLOROTHIAZIDE 12.5 MG CAPSULE PO SCH (09:53)
[2019-02-13] MEDS: ENOXAPARIN 40 MG/0.4 ML SYR SQ SCH (09:54)
[2019-02-13] MEDS: METOPROLOL TART 25 MG TABLET PO SCH ×2 (09:54→21:30)
[2019-02-13] MEDS: MELOXICAM 7.5 MG TABLET PO SCH (09:54)
[2019-02-13] MEDS: ROFLUMILAST 500 MCG PO SCH (09:55)
[2019-02-13] MEDS: LISINOPRIL 20 MG TABLET PO SCH (09:55)
[2019-02-13] MEDS: PRAVASTATIN 40MG PO SCH (09:55)
[2019-02-13] MEDS: PREDNISONE 20 MG TAB PO SCH (09:57)
--- NOTE | 2019-02-13 11:08 | Physician Progress Note ---
Subjective - Date Date of Physician Progress Note: 02/13/19 - Subjective Associated symptoms: Shortness of breath, Weakness. negative: Chest pain, Cough, Fever/chills, Syncope Objective - Vital Signs Vital Signs: Vital Signs - Last 24 Hrs Temp Pulse Pulse Resp BP Pulse Ox 02/13/19 10:22 92 L 02/13/19 10:02 82 L 02/13/19 10:00 123 H 24 82 L 02/13/19 01:00 76 18 99 02/12/19 21:00 79 20 02/12/19 20:57 96 02/12/19 20:25 97.6 F 79 20 95/56 96 02/12/19 16:48 97.7 F 87 20 115/67 91 L 02/12/19 14:16 95 H 20 93 L 02/12/19 13:00 98.8 F 86 16 113/57 94 L - General General Appearance: Alert, Oriented x3, Cooperative, No acute distress Limitations: Physical limitation (generalized weakness) - Head Head exam: Atraumatic, Normocephalic, Normal inspection - Eye Eye exam: Normal appearance - Neck Neck exam: Normal inspection, Full ROM - Respiratory Respiratory exam: Decreased breath sounds, Other (recurrent hypoxia). negative: Rales, Respiratory distress, Rhonchi, Stridor, Wheezes - Cardiovascular Cardiovascular Exam: Regular rate, Normal rhythm, Normal heart sounds Peripheral Pulses: 2+: Dorsalis Pedis (R), Dorsalis Pedis (L) - GI/Abdominal GI/Abdominal exam: Soft, Other (LLQ ostomy) - Rectal Rectal exam: Deferred - exam: Deferred - Extremities Extremities exam: Pedal edema (2-3+ bilat ankles). 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 - BNP 2233 on admission - CXR: reticulonodular opacity indicative of possible pulmonary edema vs atypical pneumonia - Bilateral lower extremity ankle edema 2-3+ pitting - Starting gentle diuresis with lasix 20mg daily, change to PO lasix - Strict I&O, daily weight (down to 136 today), fluid restriction 1800ml - ECHO ordered and reviewed: LVEF 55-60%, normal diastolic function, mild mitral regurgitation, moderate tricuspid regurgitation, moderate elevation of pulmonary pressures (RVSP 63 mmHg) - Cardiology 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, continue gentle diuresis, decrease Lisinopril if hypotensive, f/u Cardiology after D/C - 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 - Urine sample collected to r/o Legionella/Histoplasma - Blood sample sent r/o Mycoplasma - Afebrile, no elevation in WBC indicating infectious cause - Continue Daliresp and Trelegy - Solumedrol 60mg IVP q8h, change to 40mg PO Daily - Duoneb q4h prn SOB - Repeat CXR to compare to previous: Right lung volume loss with diffuse interstitial opacities similar to the prior study. Large left lower lung field bulla. Small right pleural effusion and small left pleural effusion versus pleural thickening given bilateral blunting of the costophrenic angles. No new focal airspace consolidation. Minimal cardiomegaly. Pulmonary vasculature within normal limits. Hyperinflation. (3) Hypoxia Current Visit: Yes Status: Acute Base Code: R09.02 - HYPOXEMIA Comment: 02/13/19 - Hypoxic on admission, requiring oxygen to increase to 12L, down to 2L at rest this AM - Improvement since admission, titrating oxygen needs down to keep pulse ox >90% - Pt became hypoxic with RT treatment to 82% - D-Dimer mildly elevated at 0.60 - Repeat CXR to compare to previous: Right lung volume loss with diffuse interstitial opacities similar to the prior study. Large left lower lung field bulla. Small right pleural effusion and small left pleural effusion versus p leural thickening given bilateral blunting of the costophrenic angles. No new focal airspace consolidation. Minimal cardiomegaly. Pulmonary vasculature within normal limits. Hyperinflation. - Lungs remain diminished without adventitious LS - Rule out: Mycoplasma, Legionella, Histoplasma - Continue to monitor (4) DNR (do not resuscitate) Current Visit: Yes Status: Acute Base Code: Z66 - DO NOT RESUSCITATE Comment: 02/13/19 - DNR this admission (5) DVT prophylaxis Current Visit: Yes Status: Acute Base Code: Z29.9 - ENCOUNTER FOR PROPHYLACTIC MEASURES, UNSPECIFIED Comment: 02/13/19 - Moderate risk due to age, hospitalization, and increased weakness - Lovenox 40mg SQ Daily (6) Weakness Current Visit: Yes Status: Acute Base Code: R53.1 - WEAKNESS Comment: 02/13/19 - Patient reports increased weakness at home with difficulty performing ADLs as a result - Noting home weight loss - PT/OT to evaluate, unable to 02/12/19 due to physical limitations/weakness. Will come back today to try and evaluate patient - Case management to work with patient and family on half-way plan, patient and family thinking half-way > swing bed admit Results - Labs Result Diagrams: 02/11/19 21:35 02/13/19 06:10 Labs Last 24 Hours: Laboratory Results - last 24 hr 02/12/19 02/13/19 02/13/19 15:06 06:10 10:15 D-Dimer 0.60 H Sodium 139 Potassium 3.4 Chloride 101 Carbon Dioxide 22.0 Anion Gap 16.0 BUN 38 H Creatinine 1.1 Estimated GFR > 60 Random Glucose 172 H Calcium 8.7 L Troponin T < 0.010 - Imaging and Cardiology CXR Status: Report reviewed (ER CXR) DVT/PE Assessment - Risk for VTE Risk for VTE: No Risk Level: Moderate Risk Assessment Date: 02/12/19 Risk Assessment Time: 11:01 VTE Orders Placed or Will Be Placed: Yes - Active Medicaitons Current Medications: Current Medications Albuterol/Ipratropium (Duoneb) 3 ml INH RESP.Q4H PRN PRN Reason: WHEEZING Last Admin: 02/12/19 14:16 Dose: 3 ml Documented by: Aspirin (Ecotrin (Ec)) 81 mg PO DAILY [facility] Last Admin: 02/13/19 09:52 Dose: 81 mg Documented by: Enoxaparin Sodium (Lovenox) 40 mg SQ DAILY [facility] Last Admin: 02/13/19 09:54 Dose: 40 mg Documented by: Famotidine (Pepcid) 20 mg PO DAILY PRN PRN Reason: INDIGESTION Fluticasone Propionate (Flonase) 1 spray NA BID [facility] Last Admin: 02/13/19 09:52 Dose: 1 spray Documented by: Furosemide (Lasix) 20 mg PO BIDDIUR [facility] Last Admin: 02/13/19 09:53 Dose: 20 mg Documented by: Hydrochlorothiazide (Hctz 12.5mg) 12.5 mg PO DAILY [facility] Last Admin: 02/13/19 09:53 Dose: 12.5 mg Documented by: Lisinopril (Zestril) 20 mg PO DAILY [facility] Last Admin: 02/13/19 09:55 Dose: 20 mg Documented by: Meclizine HCl (Antivert) 12.5 mg PO Q8H PRN PRN Reason: DIZZINESS Meloxicam (Mobic) 15 mg PO DAILY [facility] Last Admin: 02/13/19 09:54 Dose: 15 mg Documented by: Metoprolol Tartrate (Lopressor) 25 mg PO BID [facility] Last Admin: 02/13/19 09:54 Dose: 25 mg Documented by: Non-Formulary Medication (Roflumilast [Daliresp]) 500 mcg PO DAILY [facility] Last Admin: 02/13/19 09:55 Dose: 500 mcg Documented by: Pravastatin 40mg 1 each PO DAILY [facility] Last Admin: 02/13/19 09:55 Dose: 1 each Documented by: Bridget 1 each INH DAILY [facility] Last Admin: 02/13/19 09:51 Dose: 1 each Documented by: Prednisone (Prednisone 20mg) 20 mg PO DAILYWM [facility] Last Admin: 02/13/19 09:57 Dose: 20 mg Documented by: Sodium Chloride ([place] Nasal) 0.5 ml NA Q2H PRN PRN Reason: DRY NASAL PASSAGE Last Admin: 02/12/19 00:08 Dose: 0.5 ml Documented by: AMI Plan - Labs Result Diagrams: 02/11/19 21:35 02/13/19 06:10
--- NOTE | 2019-02-13 13:02 | RADIOLOGY REPORT ---
EXAMINATION: Two View Chest Radiographs EXAM DATE: 02/13/2019 12:27 PM TECHNIQUE: Frontal and lateral views INDICATION: Hypoxia COMPARISON: February 11, 2019 ENCOUNTER: Not applicable FINDINGS: Right lung volume loss with diffuse interstitial opacities similar to the prior study. Large left low er lung field bulla. Small right pleural effusion and small left pleural effusion versus pleural thic kening given bilateral blunting of the costophrenic angles. No new focal airspace consolidation. Mini mal cardiomegaly. Pulmonary vasculature within normal limits. Hyperinflation. IMPRESSION: Features of pulmonary fibrosis and severe pulmonary emphysema as above. No new airspace consolidation . Dictated by: Michael Lanier DO on 02/13/2019 12:59 PM. .
[2019-02-13] MEDS ORDERED: HYDROXYZINE PAMOATE 25 MG CAPSULE PO PRN (13:48)
[2019-02-13] MEDS ORDERED: CEFTRIAXONE 1GM/50ML BAG 1 GM/50 ML BAG IVPB SCH (14:00)
--- NOTE | 2019-02-13 14:02 | Occupational Therapy Tx Note ---
Occupational Therapy Tx Note - Treatment Note Tolerated: Fair Total Time Spent With Patient: 20 (ADL) Occupational Therapy Treatment Note: Detail (S: Pt up in chair, feeling better this afternoon. O: Pt on 5 liters of oxygen throughout treatment. Sit to stand with walker and amb 8 feet to bathroom with 2 short rest breaks for pursed lip breathing with SBA. Pt seated on chair in bathroom and completed oral hygiene Indly with rest breaks as needed due to shortness of breath. Reviewed pacing and modified breathing techniques, pt reports he is familiar with modifications. Sit to stand and amb back to EOB, 8 feet, with 2 wheeled walker and SBA with no rest breaks. Pt rested at EOB for several minutes and then completed sit to supine Indly. Pt left supine with HOB elevated. A: Pt Ind with ambulating short distances and with oral hygiene, he continues with significant shortness of breath with any activity.) Occupational Therapy Problem List: Detail (1. Decreased Ind with self care tasks due to poor endurance. 2. Decreased Ind with functional mobility needed for safe and Ind ADLs/IADLs. 3. Poor overall activity tolerance needed for ADLs.) Occupational Therapy Goals: 1. Pt will be safe and Ind with grooming/hygiene tasks while correctly utilizing modified breathing techniques. 2. Pt will be Ind with ambulating household distances to allow Ind self cares. 3. Pt will demonstrate improved tolerance to light ADL activity and correct utilization of modified breathing techniques. Prognosis: Moderate Occupational Therapy Plan: OT 2-4 times per week to address goals and problem list above.
--- NOTE | 2019-02-13 14:10 | Physical Therapy Tx Note ---
Physical Therapy Tx Note - Treatment Note Tolerated: Fair Total Time Spent With Patient: 20 Physical Therapy Tx Note: Detail (The patient was in bed when PT arrived and complaining of difficulty breathing secondary to one nostril being plugged. The patient was independent with supine to sit. The pt. sat on the edge of the bed x 2 minutes. Pt. stood and stepped onto scale with nursing staff present. SPO2 sat. was checked after weight was taken and was 75. The patient's O2 sat returned to the 88 after 5-6 minutes and was turned up to 5 L of O2. The patient then stood and ambulated slowly 5 steps with front wheeled walker and supervision for safety. The patient stated he didn't think he could walk to the bathroom and took 5 steps backward to the recliner. The patient was left in recliner with call light within reach. The patient was very anxious throughout treatment. Patient's major limitation with mobiity is his shortness of breath as pt. was independent with all mobility. Pt.'s activity level remains limited.) Physical Therapy Problem List: Detail (1) Impaired ambulation due to increased shortness of breath with activity 2) Decreased ability to complete prolonged physical activity 3) Decreased LE strength) Physical Therapy Goals: 1) The patient will ambulate 20 feet with 4 L of O2 with supervision for safety only. 2) Assess the patient's balance using objective balance test. 3) The patient will tolerate 20 minutes of physical activity with one to two rest periods, maintaining SPO2 at 88 or above using pursed lip breathing techniques. Physical Therapy Plan: PT daily M- F for gait training, LE strengthening and muscular endurance exercises and balance exercises.
[2019-02-13] MEDS: AZITHROMYCIN 500 MG TABLET PO SCH (14:15)
[2019-02-13] MEDS: METHYLPREDNISOLONE PF 125MG/VIAL IVP SCH (18:28)
[2019-02-13] MEDS: IPRATROPIUM/ALBUTEROL (0.5MG/3MG) NEB INH PRN (20:06)
[2019-02-13] MEDS: SODIUM CHLORIDE NASAL SPRAY PRN (20:16)
[2019-02-14] MEDS: CEFTRIAXONE 1GM/50ML BAG 1 GM/50 ML BAG IVPB SCH ×3 (02:01→22:30)
[2019-02-14 06:52] LABS: HEMATOCRIT 39.8 % (42.0-52.0); HEMOGLOBIN 12.6 gm/dl (14.0-18.0); MEAN CELL VOLUME 100.5 fl (81-97); MEAN CORPUSCULAR HEMOGLOBIN 31.8 pg (27-33); MEAN CORPUSCULAR HGB CONC 31.7 g/dl (32-36); MEAN PLATELET VOLUME 10.7 fl (7.4-10.4); PLATELET COUNT 192 K/uL (130-400); RED BLOOD COUNT 3.96 M/uL (4.40-5.70); RED CELL DISTRIBUTION WIDTH 14.6 % (11.5-14.5); WHITE BLOOD COUNT W/O DIFF 11.6 K/uL (4.2-12.2)
[2019-02-14 07:18] LABS: ALB/GLOB RATIO 1.5 (1.1-1.8); ALBUMIN 3.5 g/dL (4.0-5.0); BILIRUBIN,TOTAL 0.6 mg/dL (0.2-1.0); CREATININE 1.3 mg/dL (0.7-1.2); TOTAL PROTEIN 5.9 g/dL (6.6-8.7)
[2019-02-14] MEDS: PREDNISONE 20 MG TAB PO SCH (09:49)
[2019-02-14] MEDS: FUROSEMIDE 20 MG TABLET PO SCH ×2 (09:50→17:30)
[2019-02-14] MEDS: LISINOPRIL 20 MG TABLET PO SCH (09:50)
[2019-02-14] MEDS: AZITHROMYCIN 500 MG TABLET PO SCH (09:50)
[2019-02-14] MEDS: ASPIRIN 81 MG TABEC PO SCH (09:50)
[2019-02-14] MEDS: MELOXICAM 7.5 MG TABLET PO SCH (09:50)
[2019-02-14] MEDS: POTASSIUM CHLORIDE 20 MEQ TABLET PO SCH ×2 (09:51→22:30)
[2019-02-14] MEDS: METOPROLOL TART 25 MG TABLET PO SCH ×2 (09:51→22:30)
[2019-02-14] MEDS: HYDROCHLOROTHIAZIDE 12.5 MG CAPSULE PO SCH (09:51)
[2019-02-14] MEDS: ENOXAPARIN 40 MG/0.4 ML SYR SQ SCH (09:52)
[2019-02-14] MEDS: PRAVASTATIN 40MG PO SCH (09:53)
[2019-02-14] MEDS: ROFLUMILAST 500 MCG PO SCH (09:54)
[2019-02-14] MEDS: TRELEGY INH SCH (10:10)
--- NOTE | 2019-02-14 10:48 | Physician Progress Note ---
Subjective - Date Date of Physician Progress Note: 02/14/19 - Subjective Subjective Comment: 02/14/19: Pt sleeping upon arrival to room. Patient reports feeling like his oxygen was too high last night and he was unable to sleep because of it. Stated "it felt like too much was going in the tube" and he asked RN to turn down from 4L to 3L and patient was then able to sleep. Patient appears to become anxious when he can visualize his oxygen saturation on a monitor as well as when he feels it needs to be titrated. PRN Vistaril ordered to help with anxiety. Patient now with productive cough today. Flutter valve helping pt expectorate. Sputum culture ordered and will send to lab when patient able to give sample. Lungs remain diminished without adventitious sounds. All testing for atypical pneumonia still pending. Associated symptoms: Cough, Shortness of breath, Weakness. negative: Fever/chills Objective - Vital Signs Vital Signs: Vital Signs - Last 24 Hrs Temp Pulse Pulse Pulse Resp BP Pulse Ox 02/14/19 10:10 90 22 90 L 02/14/19 09:10 97.7 F 110 H 100 H 16 106/52 89 L 02/14/19 06:15 90 L 02/14/19 06:00 97.5 F L 66 16 99/49 100 02/14/19 02:18 97.4 F L 81 82 20 117/68 98 02/13/19 22:00 97.4 F L 85 20 120/59 97 02/13/19 21:00 95 H 20 02/13/19 20:06 99 H 20 98 02/13/19 18:00 97.4 F L 102 H 18 121/72 93 L 02/13/19 14:00 97.8 F 106 H 16 102/45 98 - General General Appearance: Alert, Oriented x3, Cooperative, No acute distress Limitations: Physical limitation (generalized weakness) - Head Head exam: Atraumatic, Normocephalic, Normal inspection - Eye Eye exam: Normal appearance - Neck Neck exam: Normal inspection, Full ROM - Respiratory Respiratory exam: Decreased breath sounds, Other (recurrent hypoxia). negative: Rales, Respiratory distress, Rhonchi, Stridor, Wheezes - Cardiovascular Cardiovascular Exam: Regular rate, Normal rhythm, Normal heart sounds Peripheral Pulses: 2+: Dorsalis Pedis (R), Dorsalis Pedis (L) - GI/Abdominal GI/Abdominal exam: Soft, Other (LLQ ostomy) - Rectal Rectal exam: Deferred - exam: Deferred - Extremities Extremities exam: Pedal edema (1-2+ bilat ankles, improving) - Back Back exam: Reports: Normal inspection - Neurological Neurological exam: Alert, Oriented X3 - Psychiatric Psychiatric exam: Normal affect, Normal mood - Skin Skin exam: Dry, Intact, Normal color Assessment and Plan - Assessment and Plan (1) CHF (congestive heart failure) Current Visit: Yes Status: Acute Base Code: I50.9 - HEART FAILURE, UNSPECIFIED Comment: 02/14/19 - Increased SOB x 3 days with bilateral leg swelling x 3 weeks - No history of CHF, 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 No new airspace consolidation. - Bilateral lower extremity ankle edema now improved to 1-2+ pitting - Continue gentle diuresis with PO lasix 20mg daily - Strict I&O, daily weight (down to 134 today), fluid restriction 1800ml - ECHO ordered and reviewed: LVEF 55-60%, normal diastolic function, mild mitral regurgitation, moderate tricuspid regurgitation, moderate elevation of pulmonary pressures (RVSP 63 mmHg) - Cardiology 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, continue gentle diuresis, decrease Lisinopril if hypotensive, f/u Cardiology after D/C - monitoring and evaluation advisor (2) COPD (chronic obstructive pulmonary disease) Current Visit: Yes Status: Acute Qualifiers: COPD type: unspecified COPD Qualified Code(s): J44.9 - Chronic obstructive pulmonary disease, unspecified Base Code: J44.9 - CHRONIC OBSTRUCTIVE PULMONARY DISEASE, UNSPECIFIED Comment: 02/13/19 - Increased SOB, COPD at baseline with home Oxygen use at 2-4L, patient in creases on own as needed - Oxygen saturation maintained at upper 90's on 3L N/C, dipped to 90% and c hanged to 3L High Flow O2 N/C, now steady 88-90% with current treatment - ER CXR: emphysema, diffuse reticulonodular opacity more prominent than prior studies which may reflect mild interstitial pulmonary edema or atypical pneunomia. 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 Large left lower lung field bulla. Small right pleural effusion and small left pleural effusion versus pleural thickening given bilateral blunting of the costophrenic angles. No new focal airspace consolidation. Minimal cardiomegaly. Pulmonary vasculature within normal limits. Hyperinflation. - Started Azithromycin 500mg PO Daily & Rocephin 1gm Q12H (3) Hypoxia Current Visit: Yes Status: Acute Base Code: R09.02 - HYPOXEMIA Comment: 02/14/19 - Hypoxic on admission, requiring oxygen to increase to 12L, down to 3L High Flow this AM, maintaining 88-90% - Improvement since admission, titrating oxygen needs down to keep pulse ox >90% - Pt became hypoxic with RT treatment to 82% Tuesday02/13/19 - PRN Hydroxyzine 25mg PO ordered Q8H PRN to help with Hypoxia/anxiety - D-Dimer mildly elevated at 0.60 - Repeat CXR to compare to previous: Right lung volume loss with diffuse interstitial opacities similar to the prior study. Large left lower lung field bulla. Small right pleural effusion and small left pleural effusion versus pleural thickening given bilateral blunting of the costophrenic angles. No new focal airspace consolidation. Minimal cardiomegaly. Pulmonary vasculature within normal limits. Hyperinflation. - Lungs remain diminished without adventitious LS - Rule out: Mycoplasma, Legionella, Histoplasma & sputum culture ordered - Continue to monitor (4) Weakness Current Visit: Yes Status: Acute Base Code: R53.1 - WEAKNESS Comment: 02/14/19 - Patient reports increased weakness at home with difficulty performing ADLs as a result - Noting home weight loss - PT/OT to evaluate, unable to 02/12/19 due to physical limitations/weakness. Pt able to tolerate minimal therapy in room 02/13/19. - Case management to work with patient and family on halfway plan, patient and family thinking group home > swing bed admit (5) DVT prophylaxis Current Visit: Yes Status: Acute Base Code: Z29.9 - ENCOUNTER FOR PROPHYLACTIC MEASURES, UNSPECIFIED Comment: 02/14/19 - Moderate risk due to age, hospitalization, and increased weakness - Lovenox 40mg SQ Daily (6) DNR (do not resuscitate) Current Visit: Yes Status: Acute Base Code: Z66 - DO NOT RESUSCITATE Comment: 02/14/19 - DNR this admission Results - Labs Result Diagrams: 02/14/19 06:10 02/14/19 06:10 Labs Last 24 Hours: Laboratory Results - last 24 hr 02/14/19 02/14/19 02/14/19 06:10 06:10 06:10 WBC 11.6 RBC 3.96 L Hgb 12.6 L Hct 39.8 L MCV 100.5 H MCH 31.8 MCHC 31.7 L RDW 14.6 H Plt Count 192 MPV 10.7 H Neutrophils % 87.0 H Eosinophils % Not Reportable Basophils % Not Reportable Absolute Neutrophils Not Reportable Lymphocytes 11.0 L Monocytes 2.0 Sodium 141 Potassium 2.8 L* Chloride 99 Carbon Dioxide 26.0 Anion Gap 16.0 BUN 40 H Creatinine 1.3 H Estimated GFR 56 Random Glucose 128 H Calcium 8.7 L Total Bilirubin 0.60 AST 30 ALT 52 H Alkaline Phosphatase 95 C-Reactive Protein Total Protein 5.9 L Albumin 3.5 L Globulin 2.4 Albumin/Globulin Ratio 1.5 Procalcitonin 0.163 02/14/19 06:10 WBC RBC Hgb Hct MCV MCH MCHC RDW Plt Count MPV Neutrophils % Eosinophils % Basophils % Absolute Neutrophils Lymphocytes Monocytes Sodium Potassium Chloride Carbon Dioxide Anion Gap BUN Creatinine Estimated GFR Random Glucose Calcium Total Bilirubin AST ALT Alkaline Phosphatase C-Reactive Protein 0.86 H Total Protein Albumin Globulin Albumin/Globulin Ratio Procalcitonin - Imaging and Cardiology Chest x-ray Status: Report reviewed (no change) DVT/PE Assessment - Risk for VTE Risk for VTE: No Risk Level: Moderate Risk Assessment Date: 02/12/19 Risk Assessment Time: 11:01 VTE Orders Placed or Will Be Placed: Yes - Active Medicaitons Current Medications: Current Medications Albuterol/Ipratropium (Duoneb) 3 ml INH RESP.Q4H PRN PRN Reason: WHEEZING Last Admin: 02/13/19 20:06 Dose: 3 ml Documented by: Aspirin (Ecotrin (Ec)) 81 mg PO DAILY [facility] Last Admin: 02/14/19 09:50 Dose: 81 mg Documented by: Azithromycin (Zithromax) 500 mg PO DAILY [facility] Last Admin: 02/14/19 09:50 Dose: 500 mg Documented by: Enoxaparin Sodium (Lovenox) 40 mg SQ DAILY [facility] Last Admin: 02/14/19 09:52 Dose: 40 mg Documented by: Famotidine (Pepcid) 20 mg PO DAILY PRN PRN Reason: INDIGESTION Fluticasone Propionate (Flonase) 1 spray NA BID [facility] Last Admin: 02/13/19 21:27 Dose: Not Given Documented by: Furosemide (Lasix) 20 mg PO BIDDIUR [facility] Last Admin: 02/14/19 09:50 Dose: 20 mg Documented by: Hydrochlorothiazide (Hctz 12.5mg) 12.5 mg PO DAILY [facility] Last Admin: 02/14/19 09:51 Dose: 12.5 mg Documented by: Hydroxyzine Pamoate (Vistaril) 25 mg PO Q8H PRN PRN Reason: ANXIETY Last Admin: 02/14/19 02:06 Dose: 25 mg Documented by: CEFTRIAXONE 1GM/50ML BAG (Ceftriaxone 1 Gm-D5w Bag) 1 gm in 50 mls @ 100 mls/hr IVPB Q12HR [facility] Last Admin: 02/14/19 09:55 Dose: 100 mls/hr Documented by: Lisinopril (Zestril) 20 mg PO DAILY [facility] Last Admin: 02/14/19 09:50 Dose: 20 mg Documented by: Meclizine HCl (Antivert) 12.5 mg PO Q8H PRN PRN Reason: DIZZINESS Meloxicam (Mobic) 15 mg PO DAILY [facility] Last Admin: 02/14/19 09:50 Dose: 15 mg Documented by: Metoprolol Tartrate (Lopressor) 25 mg PO BID [facility] Last Admin: 02/14/19 09:51 Dose: 25 mg Documented by: Non-Formulary Medication (Roflumilast [Daliresp]) 500 mcg PO DAILY [facility] Last Admin: 02/14/19 09:54 Dose: 500 mcg Documented by: Pravastatin 40mg 1 each PO DAILY [facility] Last Admin: 02/14/19 09:53 Dose: 1 each Documented by: Bridget 1 each INH DAILY [facility] Last Admin: 02/14/19 10:10 Dose: 1 each Documented by: Potassium Chloride (Klor-Con) 20 meq PO BID [facility] Last Admin: 02/14/19 09:51 Dose: 20 meq Documented by: Prednisone (Prednisone 20mg) 20 mg PO DAILYWM [facility] Last Admin: 02/14/19 09:49 Dose: 20 mg Documented by: Sodium Chloride ([place] Nasal) 0.5 ml NA Q2H PRN PRN Reason: DRY NASAL PASSAGE Last Admin: 02/13/19 20:16 Dose: 0.5 ml Documented by: JAN Plan - Labs Result Diagrams: 02/14/19 06:10 02/14/19 06:10
--- NOTE | 2019-02-14 10:50 | Occupational Therapy Tx Note ---
Occupational Therapy Tx Note - Treatment Note Tolerated: Fair Total Time Spent With Patient: 20 (ADL) Occupational Therapy Treatment Note: Detail (S: Pt resting in bed, reports he didn't sleep well but he would like to try emptying his ostomy bag. O: Pt requested to increased oxygen to 4 liters. Supine to sit Indly. Pt rested 1 minute at EOB. Sit to stand and amb 10 feet with walker to toilet with one short rest break. Pt able to empty and clean ostomy bag Indly while standing at toilet. Pt amb to sink to wash hands and face with 2 wheeled walker. Pt able to amb 8 feet back to chair with 2 wheeled walker and 1 short rest break of approx. 1 minute. Pt left seated in recliner. A: Pt continues with significant shortness of breath but he is able to take appropriate breaks and complete pursed lip breathing. Pt demonstrates Ind with ostomy care.) Occupational Therapy Problem List: Detail (1. Decreased Ind with self care tasks due to poor endurance. 2. Decreased Ind with functional mobility needed for safe and Ind ADLs/IADLs. 3. Poor overall activity tolerance needed for ADLs.) Occupational Therapy Goals: 1. Pt will be safe and Ind with grooming/hygiene tasks while correctly utilizing modified breathing techniques. 2. Pt will be Ind with ambulating household distances to allow Ind self cares. 3. Pt will demonstrate improved tolerance to light ADL activity and correct utilization of modified breathing techniques. Prognosis: Moderate (Pt would benefit from ongoing rehab although he is only able to tolerate short treatments at this time.) Occupational Therapy Plan: OT 2-4 times per week to address goals and problem list above.
--- NOTE | 2019-02-14 14:35 | Physical Therapy Tx Note ---
Physical Therapy Tx Note - Treatment Note Tolerated: Fair Total Time Spent With Patient: 15 Physical Therapy Tx Note: Detail (The patient was in bed and complaining of difficulty breathing due to one of his nostrils being blocked. Patient agreed to doing LE exercises in bed. The patient completed the following with 3 rest periods to catch his breath: ankle pumps and ankle circles x 10 reps each, SLR and heel slides x 10 reps, quad sets bilaterally x 10 reps. The patient refused further activity due to fatigue. Will see patient tomorrow for gait training and LE exercises as tolerated.) Physical Therapy Problem List: Detail (1) Impaired ambulation due to increased shortness of breath with activity 2) Decreased ability to complete prolonged physical activity 3) Decreased LE strength) Physical Therapy Goals: 1) The patient will ambulate 20 feet with 4 L of O2 with supervision for safety only. 2) Assess the patient's balance using objective balance test. 3) The patient will tolerate 20 minutes of physical activity with one to two rest periods, maintaining SPO2 at 88 or above using pursed lip breathing techniques. Physical Therapy Plan: PT daily M- F for gait training, LE strengthening and muscular endurance exercises and balance exercises.
[2019-02-14] MEDS: FLUTICASONE PROPIONATE 50MCG NASAL 16 GM BTL SCH ×2 (15:23→22:26)
[2019-02-15 06:28] LABS: ABSOLUTE NEUTROPHIL COUNT 5.76; EOS % 0.1 % (0-6); GRAN % 77.1 % (47-80); HEMATOCRIT 39.3 % (42.0-52.0); HEMOGLOBIN 12.4 gm/dl (14.0-18.0); MEAN CELL VOLUME 101.3 fl (81-97); MEAN CORPUSCULAR HGB CONC 31.6 g/dl (32-36); MEAN PLATELET VOLUME 10.8 fl (7.4-10.4); MONO % 8.8 % (0-9); PLATELET COUNT 161 K/uL (130-400); RED BLOOD COUNT 3.88 M/uL (4.40-5.70); RED CELL DISTRIBUTION WIDTH 14.5 % (11.5-14.5); WHITE BLOOD COUNT W/O DIFF 7.5 K/uL (4.2-12.2)
[2019-02-15 06:34] LABS: MEAN CORPUSCULAR HEMOGLOBIN 31.9 pg (27-33)
[2019-02-15 09:03] LABS: ALB/GLOB RATIO 1.3 (1.1-1.8); ALBUMIN 3.4 g/dL (4.0-5.0); BILIRUBIN,TOTAL 0.5 mg/dL (0.2-1.0); CREATININE 1.4 mg/dL (0.7-1.2)
[2019-02-15] MEDS: FLUTICASONE PROPIONATE 50MCG NASAL 16 GM BTL SCH (09:15)
[2019-02-15] MEDS: CEFTRIAXONE 1GM/50ML BAG 1 GM/50 ML BAG IVPB SCH (09:18)
[2019-02-15] MEDS: PREDNISONE 20 MG TAB PO SCH (09:18)
[2019-02-15] MEDS: HYDROCHLOROTHIAZIDE 12.5 MG CAPSULE PO SCH (09:19)
[2019-02-15] MEDS: ASPIRIN 81 MG TABEC PO SCH (09:19)
[2019-02-15] MEDS: POTASSIUM CHLORIDE 20 MEQ TABLET PO SCH (09:20)
[2019-02-15] MEDS: METOPROLOL TART 25 MG TABLET PO SCH (09:20)
[2019-02-15] MEDS: FUROSEMIDE 20 MG TABLET PO SCH (09:20)
[2019-02-15] MEDS: ENOXAPARIN 40 MG/0.4 ML SYR SQ SCH (09:20)
[2019-02-15] MEDS: MELOXICAM 7.5 MG TABLET PO SCH (09:21)
[2019-02-15] MEDS: PRAVASTATIN 40MG PO SCH (09:21)
[2019-02-15] MEDS: LISINOPRIL 20 MG TABLET PO SCH (09:22)
[2019-02-15] MEDS: AZITHROMYCIN 500 MG TABLET PO SCH (09:22)
[2019-02-15] MEDS: ROFLUMILAST 500 MCG PO SCH (09:22)
[2019-02-15] MEDS: TRELEGY INH SCH (09:57)
--- NOTE | 2019-02-15 10:00 | Discharge Summary ---
Providers Discharge Summary Date: 02/15/19 Date of admission: 02/12/19 11:04 Expected Date of Discharge: 02/15/19 Attending physician: LILIANA RIZVI Primary care physician: Trevor Argueta Consults: Consult Orders 02/12/19 10:50 Consult - Cardiology NOW Consulting Provider: KAIT GIBSON Physician Instructions: Reason For Exam: CHF, SOB Does pt have current gas brazer?: Not Established Physical Exam - Vital Signs Vital Signs: Vital Signs - Last 24 Hrs Temp Pulse Pulse Resp BP Pulse Ox 02/15/19 07:23 97.7 F 77 14 101/55 98 02/15/19 05:27 97.8 F 83 16 96/53 96 02/14/19 20:00 97.5 F L 88 20 108/59 97 02/14/19 10:10 90 22 90 L - General General Appearance: Alert, Oriented x3, Cooperative, No acute distress Limitations: Physical limitation (generalized weakness) - Head Head exam: Atraumatic, Normocephalic, Normal inspection - Eye Eye exam: Normal appearance - Neck Neck exam: Normal inspection, Full ROM - Respiratory Respiratory exam: Normal lung sounds bilaterally, Decreased breath sounds (bases). negative: Rales, Respiratory distress, Rhonchi, Stridor, Wheezes - Cardiovascular Cardiovascular Exam: Regular rate, Normal rhythm, Normal heart sounds Peripheral Pulses: 2+: Dorsalis Pedis (R), Dorsalis Pedis (L) - GI/Abdominal GI/Abdominal exam: Soft, Other (LLQ ostomy) - Rectal Rectal exam: Deferred - exam: Deferred - Extremities Extremities exam: Pedal edema (1+ bilat ankles, improving) - Back Back exam: Reports: Normal inspection - Neurological Neurological exam: Alert, Oriented X3 - Psychiatric Psychiatric exam: Normal affect, Normal mood - Skin Skin exam: Dry, Intact, Normal color Hospitalization - Hospitalization Admission Diagnosis: Hypoxia. Probable CHF exacerbation vs. 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 No new airspace consolidation. - Bilateral lower extremity ankle edema now improved to 1-2+ pitting - Continue gentle diuresis with PO lasix 20mg daily, will D/C with medication along with 20 MEQ Potassium replacement - Strict I&O, daily weight (down to 133 today; total of 7 pound weight loss for admission), fluid restriction 1800ml - ECHO ordered and reviewed: LVEF 55-60%, normal diastolic function, mild mitral regurgitation, moderate tricuspid regurgitation, moderate elevation of pulmonary pressures (RVSP 63 mmHg) - Cardiology consult recommending continuing gentle diuresis, decrease Lisinopril if hypotensive, f/u Cardiology after D/C - 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 Taken back off HF today and put on 3L O2 N/C with humidification. Maintaining saturation with current treatment. - ER CXR: emphysema, diffuse reticulonodular opacity more prominent than prior studies which may reflect mild interstitial pulmonary edema or atypical pneunomia. 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 Large left lower lung field bulla. Small right pleural effusion and small left pleural effusion versus pleural thickening given bilateral blunting of the costophrenic angles. No new focal airspace consolidation. Minimal cardiomegaly. Pulmonary vasculature within normal limits. Hyperinflation. - Started Azithromycin 500mg PO Daily & Rocephin 1gm Q12H, D/C on Azithromycin (for 2 more days, totalling 5 days of coverage) & Cefdinir (for 5 more days, totalling 7 days of coverage) - LS remain CTA, without adventitious sounds (3) Hypoxia Status: Acute Base Code: R09.02 - HYPOXEMIA Comment: 02/15/19 - Hypoxic on admission, requiring oxygen to increase to 12L, down to 3L High Flow this AM, maintaining 88-90% - Improvement since admission, titrating oxygen needs down to keep pulse ox >90% - Pt became hypoxic with RT treatment to 82% Tuesday02/13/19, has not had any recurrent issues, has remained > 90% since then - PRN Hydroxyzine 25mg PO ordered Q8H PRN to help with Hypoxia/anxiety - D-Dimer mildly elevated at 0.60 - Repeat CXR to compare to previous: Right lung volume loss with diffuse interstitial opacities similar to the prior study. Large left lower lung field bulla. Small right pleural effusion and small left pleural effusion versus pleural thickening given bilateral blunting of the costophrenic angles. No new focal airspace consolidation. Minimal cardiomegaly. Pulmonary vasculature within normal limits. Hyperinflation. - Lungs CTA without adventitious LS - Rule out: Mycoplasma, Legionella (neg), Histoplasma & sputum culture ordered - Continue to monitor (4) Weakness Status: Acute Base Code: R53.1 - WEAKNESS Comment: 02/15/19 - Patient reports increased weakness at home with difficulty performing ADLs as a result - Noting home weight loss - PT/OT to evaluate, unable to 02/12/19 due to physical limitations/weakness. Pt able to tolerate minimal therapy in room after initial attempt. - Case management setting up D/C to [facility] (5) DVT prophylaxis Status: Acute Base Code: Z29.9 - ENCOUNTER FOR PROPHYLACTIC MEASURES, UNSPECIFIED Comment: 02/15/19 - Moderate risk due to age, hospitalization, and increased weakness - Lovenox 40mg SQ Daily (6) DNR (do not resuscitate) Status: Acute Base Code: Z66 - DO NOT RESUSCITATE Comment: 02/15/19 - DNR this admission - Hospitalization Course Disposition: Group Home Care Facility Hospital Course: 84 year old male patient presented to ED for evaluation of SOB. Patient reported getting up to change his ostomy bag during the night and reports being unable to catch his breath after getting up. States he has to increase his oxygen to 4L at that time, up from his baseline 2L oxygen. 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 Denied fever, chills, cough, nausea, vomiting, or diarrhea. Patient has noted bilateral leg swelling for 3 weeks as well. Reports a cardiac history significant for a cardiac stent 4-5 years ago, but has not been following with any gas brazer since then. Patient also has a PMH of COPD with home oxygen use, HTN, and an ostomy due to rectal cancer 13 years ago. PCP: Dr. Argueta ED Course: EKG: sinus tachycardia rate 107 with PVCx CXR: emphysema; reticulonodular opacity which may be interstitial pulmonary edema vs atypical pneumonia Trop 0.021 BNP 2233 CBC unremarkable, K 3.2, Cr 1.2, GFR 60 Solumedrol 125mg IVP 02/12/19: Patient A&O x 4, resting comfortably in bed. Notes some improvement in SOB since admission. Reports intermittent SOB x 3-4 days with bilateral leg swelling x 3 weeks. Also notes increasing weakness and difficulty at home, as he lives alone. Reports using a wheeled walker within the home. Has also noted weight loss due to inability to make meals for himself. 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 02/15/19: Patient awake and alert upon examination. Patient states breathing is controlled with current treatment. Patient was decreased from HF O2 back to humidified O2 3L. No nursing concerns noted. Remains afebrile. Requiring assistance with ostomy. Continues working with PT/OT, gaining more strength. Patient medically cleared for D/C to senior care. CM working on plan for D/C. Procedures: Imaging and X-Rays 02/11/19 21:17 CHEST 2 VIEWS [RAD] Stat 02/13/19 10:46 CHEST 2 VIEWS [RAD] Stat Cardiology Procedures 02/11/19 21:17 EKG NOW 02/11/19 23:13 Ship Washer .Continuous Echocardiogram 2D - Complete NOW 02/12/19 07:24 EKG QDX2@0600 02/13/19 08:27 Echo W/CF & Cardiac Doppler NOW Abnormal Labs: Abnormal Lab Results 02/11/19 02/11/19 02/13/19 Range/Units 21:35 21:35 06:10 RBC 4.34 L (4.40-5.70) M/uL Hgb (14.0-18.0) gm/dl Hct (42.0-52.0) % MCV 99.5 H (81-97) fl MCH 33.1 H (27-33) pg MCHC (32-36) g/dl RDW (11.5-14.5) % MPV (7.4-10.4) fl Gran % 83.0 H (47-80) % Neutrophils % (47-80) % Lymphocytes % 8.9 L (16-45) % Lymphocytes (16-45) % D-Dimer (0-0.59) mg/L FEU Potassium 3.2 L (3.4-4.5) mmol/L Anion Gap 17.0 H (7-16) BUN 24 H 38 H (8-23) mg/dL Creatinine (0.7-1.2) mg/dL Random Glucose 125 H 172 H (74-109) mg/dL Calcium 8.7 L (8.8-10.2) mg/dL Total Bilirubin 1.50 H (0.2-1.0) mg/dL ALT (<41) U/L Alkaline Phosphatase 131 H (40-129) U/L Troponin T 0.021 H (0-0.010) ng/mL C-Reactive Protein (<0.5) mg/dL NT-Pro-B Natriuret Pep 2233.00 H (<450) pg/mL Total Protein (6.6-8.7) g/dL Albumin (4.0-5.0) g/dL 02/13/19 02/14/19 02/14/19 Range/Units 10:15 06:10 06:10 RBC 3.96 L (4.40-5.70) M/uL Hgb 12.6 L (14.0-18.0) gm/dl Hct 39.8 L (42.0-52.0) % MCV 100.5 H (81-97) fl MCH (27-33) pg MCHC 31.7 L (32-36) g/dl RDW 14.6 H (11.5-14.5) % MPV 10.7 H (7.4-10.4) fl Gran % (47-80) % Neutrophils % 87.0 H (47-80) % Lymphocytes % (16-45) % Lymphocytes 11.0 L (16-45) % D-Dimer 0.60 H (0-0.59) mg/L FEU Potassium 2.8 L* (3.4-4.5) mmol/L Anion Gap (7-16) BUN 40 H (8-23) mg/dL Creatinine 1.3 H (0.7-1.2) mg/dL Random Glucose 128 H (74-109) mg/dL Calcium 8.7 L (8.8-10.2) mg/dL Total Bilirubin (0.2-1.0) mg/dL ALT 52 H (<41) U/L Alkaline Phosphatase (40-129) U/L Troponin T (0-0.010) ng/mL C-Reactive Protein (<0.5) mg/dL NT-Pro-B Natriuret Pep (<450) pg/mL Total Protein 5.9 L (6.6-8.7) g/dL Albumin 3.5 L (4.0-5.0) g/dL 02/14/19 02/15/19 02/15/19 Range/Units 06:10 06:10 08:42 RBC 3.88 L (4.40-5.70) M/uL Hgb 12.4 L (14.0-18.0) gm/dl Hct 39.3 L (42.0-52.0) % MCV 101.3 H (81-97) fl MCH (27-33) pg MCHC 31.6 L (32-36) g/dl RDW (11.5-14.5) % MPV 10.8 H (7.4-10.4) fl Gran % (47-80) % Neutrophils % (47-80) % Lymphocytes % 14.0 L (16-45) % Lymphocytes (16-45) % D-Dimer (0-0.59) mg/L FEU Potassium 3.1 L (3.4-4.5) mmol/L Anion Gap (7-16) BUN 42 H (8-23) mg/dL Creatinine 1.4 H (0.7-1.2) mg/dL Random Glucose 112 H (74-109) mg/dL Calcium 8.7 L (8.8-10.2) mg/dL Total Bilirubin (0.2-1.0) mg/dL ALT 62 H (<41) U/L Alkaline Phosphatase (40-129) U/L Troponin T (0-0.010) ng/mL C-Reactive Protein 0.86 H (<0.5) mg/dL NT-Pro-B Natriuret Pep 1437.00 H (<450) pg/mL Total Protein 6.0 L (6.6-8.7) g/dL Albumin 3.4 L (4.0-5.0) g/dL Condition at Discharge: (2) Stable VTE Discharge VTE Reason For No Overlap Therapy: Not Indicated Discharge Medications - Discharge Medications Prescriptions: Cefdinir 300 mg PO BID #9 capsule Prednisone [Prednisone 20Mg] 20 mg PO DAILY 2 Days tab Home Medications: Ambulatory Orders Metoprolol Tartrate [Lopressor] 25 mg PO DAILY 02/01/14 [Last Taken 02/01/14] Pravastatin Sodium [Pravachol] 40 mg PO QPM 02/01/14 [Last Taken 02/01/14] Albuterol Sulfate [Proair Hfa] 1 - 2 puff IH .EVERY 4-6 HOURS PRN 04/01/17 [Last Taken Unknown] Meloxicam [Mobic] 15 mg PO DAILY 04/01/17 [Last Taken Unknown] Albuterol Sulfate [Ventolin Hfa] 1 - 2 puff IH Q4-6HR #1 inhaler 02/16/18 [Last Taken Unknown] Famotidine 20 mg PO DAILY PRN tab 02/16/18 [Last Taken Unknown] Meclizine HCl 12.5 mg PO Q8HR PRN tab.chew 02/16/18 [Last Taken Unknown] Roflumilast [Daliresp] 500 mcg PO DAILY tab 02/16/18 [Last Taken Unknown] Aspirin [Aspirin EC] 81 mg PO DAILY 02/12/19 [Last Taken Unknown] Fluticasone/Umeclidin/Vilanter [Trelegy Ellipta 100-62.5-25] 1 puff INH DAILY 02/12/19 [Last Taken Unknown] Lisinopril/Hydrochlorothiazide [Lisinopril-Hctz 20-12.5 mg Tab] 1 each PO DAILY 02/12/19 [Last Taken Unknown] Azithromycin [Zithromax] 500 mg PO DAILY 2 Days #0 tab 02/15/19 [Last Taken Unknown] Cefdinir 300 mg PO BID #9 capsule 02/15/19 [Last Taken Unknown] Fluticasone Propionate [Flonase] 1 spray NA BID btl 02/15/19 [Last Taken Unknown] Furosemide [Lasix] 20 mg PO DAILY tablet 02/15/19 [Last Taken Unknown] Hydroxyzine Pamoate [Vistaril] 25 mg PO BID PRN capsule 02/15/19 [Last Taken Unknown] Potassium Chloride [Klor-Con] 20 meq PO DAILY tablet.sa 02/15/19 [Last Taken Unknown] Prednisone [Prednisone 20Mg] 20 mg PO DAILY 2 Days tab 02/15/19 [Last Taken Unknown] Discharge Plan - Discharge Instructions Activity at Discharge: Increase Activity as Tolerated Diet at Discharge: Advance to Usual Diet Instructions: Heart Failure (DC), Emphysema (DC), COPD (Chronic Obstructive Pulmonary Disease) (DC) Additional Instructions: Activity: Increase Activity as Tolerated Diet: Advance to Usual Diet Consults: [] Follow Up: [Cardiology as directed upon D/C] Dressing/Wound Care: (Type) (Change) Additional: [Continue O2 2-4L to keep O2 saturation > 90% Continue Azithromycin (Zithromax) x 2 more days with your next dose due Tuesday02/16/19 Continue Prednisone x 2 more days with your next dose due Tuesday02/16/19 Start taking Cefdinir x 5 more days with your next dose due 02/15/19 Use Hydroxyzine twice daily as needed for anxiety/restlessness] Quality Measures - Quality Measures Quality Measures: Advance Directives, Documentation of Current Medications in Medical Record, Elder Maltreatment Screen and Follow-Up Plan, Heart Failure, Screening for High Blood Pressure and F/U Documented - Current Medications Quality Measure: Measure #130: Documentation of Current Medications Documentation of Current Medications: <Current Medications Documented/Reviewed> [G8427] - Blood Pressure Screening Quality Measure: Screening for High Blood Pressure and Follow-Up Documented Does Patient Have Any of the Following: Active Dx of HTN Blood Pressure Classification: Normal BP Reading Systolic Measurement: 117 Diastolic Measurement: 60 Screening for High Blood Pressure: Patient Exclusion, Hx of HTN [G9744] - Heart Failure (KASHIF/ARB Therapy) Quality Measure: Heart Failure Left Ventricular Systolic Function: Unknown (LVEF 60-65%) KASHIF Inhibitor or ARB Therapy for LVSD: <KASHIF Inhibitor or ARB therapy prescribed or currently taken> [4010F] - Heart Failure (Beta-terence Therapy) Quality Measure: Heart Failure Left Ventricular Systolic Function: Unknown (BP 90's/50's-100's/50's) Beta-Terence Therapy for LVEF < 40%: <Beta-Terence Therapy Prescribed> [R5250] - Advance Directives Quality Measure: Measure #47: Care Plan Advance Directives Established: No Advance Directives Information Provided To Patient: Declined Advance Directives on File: No Living Will: No Power of Certified Registered Dental Assistant: No Advance Care Planning: <Care Plan/Decision Maker Documented; Discussed & Documented> [1123F] (DNR) - Elder Abuse Suspicion Index Screening: Elder Abuse Suspicion Index Screening Rely on people for bathing, dressing, shopping, banking, etc: Yes Prevented from getting food, clothes, medication, etc: No Made to feel shamed or threatened by someone: No Forced to sign papers or use money against will: No Feel afraid, touched in ways not wanted or hurt physically: No Poor eye contact, withdrawn, malnourished, cuts or bruises: No Screening Result: Negative result EASI Reference Information: Josh PAUL, Barry C, Maulik D, Erica M.Development and validation of a tool to assist physicians identification of elder abuse: The Elder Abuse Suspicion Index (EASI ). Journal of Elder Abuse and Neglect, 2008; 20 (3): 276-300. - Elder Maltreatment Screen Quality Measures: Elder Maltreatment Screen and Follow-Up Plan Elder Maltreatment Screen: <Negative, No Follow-Up Plan Required> [G8734]
--- NOTE | 2019-02-15 11:39 | Physical Therapy Tx Note ---
Physical Therapy Tx Note - Treatment Note Tolerated: Good Total Time Spent With Patient: 25 Physical Therapy Tx Note: Detail (Pt reclined in bed upon arrival; cooperative for therapy. 3L of O2 via nasal cannula. Independent w/bed mobility, sit/stand transfer. Ambulated about 5 steps over to recliner w/SBA and assist for O2 tubing, independent stand/sit. Somewhat short of breath, took several minutes to recover. Performed 10 reps each B of seated marching, knee extension, ankle pumps, and ankle circles. Conversed intermittently during entire treatment time. Most short of breath w/standing/walking. Provided w/warm blanket and placed bedside table in front at pt's request, call light in reach. Nrsg notified.) Physical Therapy Problem List: Detail (1) Impaired ambulation due to increased shortness of breath with activity 2) Decreased ability to complete prolonged physical activity 3) Decreased LE strength) Physical Therapy Goals: 1) The patient will ambulate 20 feet with 4 L of O2 with supervision for safety only. 2) Assess the patient's balance using objective balance test. 3) The patient will tolerate 20 minutes of physical activity with one to two rest periods, maintaining SPO2 at 88 or above using pursed lip breathing techniques. Prognosis: Good Physical Therapy Plan: Pt anticipates being discharged today, transferring to [place].
[2019-02-15 22:07] LABS: HISTOPLASMA ANTIGEN (URINE) Negative (Negative)
[2019-02-20 18:02] LABS: MYCOPLASMA PNEU IgG AB Positive (Negative)
[2019-02-21 10:37] LABS: MYCOPLASMA PNEUM IgM AB Positive (Negative)
== END 2019-02-15 14:55 | DRG 292 ==
LOC: ER 21:14 → MEDSURG 22:56 → OBSVTOIN 02-12 11:04
PROVIDERS: ADMIT Internal Medicine; ATTEND Internal Medicine
DX: I50.9 Heart failure, unspecified (principal); J44.1 Chronic obstructive pulmonary disease with (acute) exacerbation; J81.1 Chronic pulmonary edema; R53.1 Weakness; J81.0 Acute pulmonary edema; R09.02 Hypoxemia; I25.2 Old myocardial infarction; I10 Essential (primary) hypertension; Z99.81 Dependence on supplemental oxygen; Z93.3 Colostomy status; Z87.891 Personal history of nicotine dependence; Z66 Do not resuscitate; Z95.5 Presence of coronary angioplasty implant and graft; Z86.11 Personal history of tuberculosis; Z85.048 Personal history of other malignant neoplasm of rectum, rectosigmoid junction, and anus
CPT/HCPCS: 71046; 80048; 80053; 83880; 84145; 84484; 85025; 85027; 85379; 86140; 86738; 87070; 87449; 93005; 93010; 93306; 94640; 94667; 94668; 94760; 94761; 96374; 99223; 99233; 99239; 99285; J0696; J1650; J1940; J2930; J7512